=== PATIENT | female | born 1940 | race Caucasian/White ===

== ENCOUNTER 2016-11-01 19:47 | Inpatient (IN) | payer MEDICARE, BC, MEDICAID ==
[~2016-11-01] VITALS: Ht 167.6 cm; Wt 86.2 kg
[~2016-11-01 19:47] MED LIST: ACETAMINOPHEN325 MG PO; ACETAMINOPHEN500 M1 PO; ATIVAN0.5 MG PO; ATROVENT 0.02%2.5 ML UPD; BAYER CHEWABLE81 MG PO; BETAPACE 80 MG80 MG PO; BUMEX2 MG PO; CARDIZEM CD120 MG PO; CARDIZEM120 MG PO; CARDURA2 MG PO; CARDURA4 MG PO; CLARITIN 10 MG10 MG PO; COUMADIN PO; COUMADIN5 MG PO; COUMADIN6 MG PO; COUMADIN7.5 MG PO; CRESTOR10 MG PO; CRESTOR5 MG PO; DIABETA5 MG PO; ELIQUIS2.5 MG PO; FERROUS SULFAT325 MG PO; FISH OIL 1,0001 CA1 PO; GLIPIZIDE10 MG PO; GLUCOPHAGE500 MG PO; GLUCOTROL XL 5 M5 MG PO; HYDRALAZINE HCL50 MG PO; HYZAAR 100-25 T1 TAB PO; ICAPS AREDS1 TAB.SA PO; INDERAL 40 MG T40 MG PO; LASIX20 MG PO; LASIX40 MG PO; LEVAQUIN PREMI750 MG PO; LEVEMIR100 U/M1 SC; LISINOPRIL2.5 MG PO; LYRICA150 MG PO; LYRICA75 MG PO; MICRO-K10 MEQ PO; MILK OF MAGNESI30 ML PO; MULTIPLE VITAMI1 TA1 PO; MYLANTA / MAALO30 ML PO; NORMODYNE / TR300 MG PO; NORVASC10 MG PO; NORVASC5 MG PO; PHENERGAN25 M1 PO; PLAVIX75 MG PO; POTASSIUM CHLO10 ME1 PO; POTASSIUM CHLOR8 ME1 PO; PREVACID SOLUTA30 MG PO; PREVACID15 MG PO; PREVACID30 MG PO; PROCRIT/EP3000 UNITS SC; RYTHMOL225 MG PO; SYNTHROID50 MCG PO; ULTRAM50 MG PO; VITAMIN B-1000 MCG/M IM; WELLBUTRIN SR100 MG PO; WELLBUTRIN SR150 MG PO; XOPENEX 0.0.63 MG/3 UPD; ZITHROMAX 500M500 MG PO; [UNRECOGNIZED DRUG - REMARK]
[2016-11-01 21:00] LABS: BASOPHILS 0.2 % (0-2); EOSINOPHILS 0.8 % (0-7); HEMATOCRIT 34.8 % (36.0-48.0); HEMOGLOBIN 11.5 g/dL (12-16); IMMATURE GRANULOCYTES 0.7 % (0-5); LYMPHOCYTES 22.8 % (15-50); MCH 31.1 pg (26.0-34.0); MCV 94.1 fL (80.0-100.0); MEAN PLATELET VOLUME 11.4 fL (7.4-10.4); NEUTROPHILS 66.5 % (40-80); PLATELET COUNT 192 10x3/uL (130-400); RDW 12.8 % (11.5-14.5); WBC 16.6 10x3/uL (4.8-10.8)
[2016-11-01 21:15] LABS: ALBUMIN 2.8 g/dL (3.4-5.0); ANION GAP 11.3 mmol/L (8-16); BILIRUBIN - TOTAL 0.37 mg/dL (0.2-1.3); CALCIUM 8.4 mg/dL (8.5-10.1); CARBON DIOXIDE 31.5 mmol/L (21.0-32.0); CREATININE - SERUM 2.4 mg/dL (0.6-1.3); POTASSIUM - SERUM 4.8 mmol/L (3.5-5.1); PROTEIN - SERUM 6.7 g/dL (6.4-8.2)
[2016-11-01 23:29] LABS: APPEARANCE CLEAR (CLEAR); BILIRUBIN NEGATIVE (NEGATIVE); COLOR YELLOW (YELLOW); GLUCOSE NEGATIVE (NEGATIVE); KETONE NEGATIVE (NEGATIVE); LEUKOCYTE ESTERASE NEGATIVE (NEGATIVE); NITRITE NEGATIVE (NEGATIVE); PROTEIN NEGATIVE (NEGATIVE); SPECIFIC GRAVITY 1.015 (1.005-1.020); UROBILINOGEN NORMAL (NORMAL)
--- NOTE | 2016-11-02 01:40 | NUR ---
RECIEVED FROM ER, ASSESSMENT, HISTORY AND MED REC COMPLETED, NO ACUTE DISTRESS NOTED, DENIES PAIN OR NEEDS AT THIS TIME, ORIENTED TO ROOM AND CL LIGHT, WILL MONITOR
[2016-11-02 01:42] VITALS: BP 133/56; BMI 30.7
--- NOTE | 2016-11-02 03:40 | NUR ---
RESTING WITH EYES CLOSED, RESP WITH EASE, NO DISTRESS NOTED, SR'S UP, CL IN REACH
[2016-11-02 04:00] VITALS: BP 156/60
[2016-11-02] MEDS ORDERED: TYLENOL W/CODEI1 TAB PO (04:38)
[2016-11-02 05:51] LABS: BASOPHILS 0.2 % (0-2); EOSINOPHILS 0.7 % (0-7); HEMATOCRIT 35.8 % (36.0-48.0); HEMOGLOBIN 11.7 g/dL (12-16); IMMATURE GRANULOCYTES 0.5 % (0-5); LYMPHOCYTES 21.9 % (15-50); MCH 30.8 pg (26.0-34.0); MCHC 32.7 g/dL (31.0-37.0); MCV 94.2 fL (80.0-100.0); MEAN PLATELET VOLUME 11.7 fL (7.4-10.4); MONOCYTES 10.4 % (2-11); NEUTROPHILS 66.3 % (40-80); PLATELET COUNT 210 10x3/uL (130-400); WBC 16.3 10x3/uL (4.8-10.8)
[2016-11-02] MEDS ORDERED: SCOT-TUSSI10 MG/5 ML PO (06:55)
[2016-11-02] MEDS ORDERED: TYLENOL650 MG RC (06:57)
[2016-11-02] MEDS ORDERED: VITAMIN B-1000 MCG/M IM (07:10)
--- NOTE | 2016-11-02 08:10 | NUR ---
PATIENT IS RESTING QUIETLY WITH EYES CLOSED. NO SIGNS OF DISTRESS NOTED. BED IN LOWEST POSITION, CALL LIGHT IN REACH. BED RAILS UP X'S 2. BED ALARM ON.
[2016-11-02 09:45] VITALS: BP 147/83
--- NOTE | 2016-11-02 11:24 | NUR ---
ASSISTED PATIENT TO THE BATHROOM, WITHOUT NASAL CANNULA, MONITORED OXYGEN SATURATION. OXYGEN SATURATION 96%. PATIENT VOIDED, ASSISTED PATIENT BACK TO BED. CHECKED OXYGEN SATURATION AFTER 5 MINUTES OF BEING ON ROOM AIR. 90%. APPLIED OXYGEN VIA NASAL CANNULA AT 2L/MIN. BED ALARM ON.
[2016-11-02 12:45] VITALS: BP 144/72
[2016-11-02 16:55] VITALS: BP 126/71
[2016-11-02 20:00] VITALS: BP 105/52
[2016-11-03] VITALS: BP 105/50
[2016-11-03 04:00] VITALS: BP 105/49
[2016-11-03 06:33] LABS: BASOPHILS 0.1 % (0-2); EOSINOPHILS 0 % (0-7); HEMATOCRIT 33.2 % (36.0-48.0); HEMOGLOBIN 11.1 g/dL (12-16); IMMATURE GRANULOCYTES 1.2 % (0-5); MCH 30.7 pg (26.0-34.0); MCHC 33.4 g/dL (31.0-37.0); MEAN PLATELET VOLUME 11.9 fL (7.4-10.4); MONOCYTES 3.7 % (2-11); PLATELET COUNT 195 10x3/uL (130-400); RBC 3.62 10x6/uL (4.00-5.40); RDW 12.3 % (11.5-14.5); WBC 19.7 10x3/uL (4.8-10.8)
[2016-11-03 06:36] LABS: MCV 91.7 fL (80.0-100.0)
[2016-11-03 06:44] LABS: ALBUMIN 2.6 g/dL (3.4-5.0); ANION GAP 14.7 mmol/L (8-16); BILIRUBIN - TOTAL 0.22 mg/dL (0.2-1.3); CALCIUM 8.7 mg/dL (8.5-10.1); CARBON DIOXIDE 28.3 mmol/L (21.0-32.0); CREATININE - SERUM 2.5 mg/dL (0.6-1.3); PROTEIN - SERUM 6.1 g/dL (6.4-8.2); THYROID STIMULATING HORMONE 0.59 uIU/mL (0.36-3.74)
[2016-11-03 08:31] VITALS: BP 110/64
--- NOTE | 2016-11-03 08:59 | NUR ---
PT ASSESSMENT COMPLETE AWAKE AND ALERT ORIENTED X 3 LUNGS WITH DIMINISHED BASES BILATERALLY HAS O2 AT 2LPM NASAL CANULA ASSISTED TO BATHROOM WITH MIN ASSIST WITH ROLLING WALKER TOTAL BED CHANGE DUE TO INCT EPISODE. DREA LOO
[2016-11-03 11:39] VITALS: BP 116/70
[2016-11-03 13:52] VITALS: Ht 167.6 cm; Wt 86.2 kg
--- NOTE | 2016-11-03 14:34 | NUR ---
PIV RESITED TO RIGHT FORARM 20 GA X 1 STICK GIVEN 1 MG MORPHINE PER ORDER. TOLERATED WELL PT STATES PAIN RELEIF WITH MORPHINE
[2016-11-03 15:25] VITALS: BP 103/47
--- NOTE | 2016-11-03 19:00 | NUR ---
PATIENT SUPINE IN BED WATCHING TV. HOB 30 DEGREES. AAOX4. RR EVEN AND UNLABORED. O2 @ 4L VIA NC. 0 S/S OF DISTRESS. STATES PAIN IS AN 8/10 IN HER BACK AND LEGS. IV TO RIGHT FA S/L WITH NO REDNESS OR SWELLING. TELEMETRY ON. HEEL BOOT TO LLE. B/A ON. SRX2. BED LOW. CALL LIGHT WITHIN REACH.
[2016-11-03 20:26] VITALS: BP 103/35
--- NOTE | 2016-11-03 22:00 | NUR ---
ASSISTED PATIENT TO BATHROOM AND BACK TO BED. COLLECTED URINE SAMPLE. ASSESSMENT COMPLETE. NIGHTTIME MEDS GIVEN. 4 UNITS HUMALOG GIVEN FOR BS OF 171. TYLENOL GIVEN FOR PAIN INSTEAD OF MORPHINE BECAUSE BP LOW. WILL REASSESS.
--- NOTE | 2016-11-03 23:50 | NUR ---
PATIENT VERY NAUSEATED. SPOKE WITH AARON THORNE. MAC GIVEN PER TELEPHONE ORDER.
[2016-11-04] VITALS (7 sets, daily range): BP systolic 76–147; BP diastolic 41–70
--- NOTE | 2016-11-04 04:32 | NUR ---
PATIENT SLEEPING WITH NO DISTRESS NOTED. CALL LIGHT WITHIN REACH.
[2016-11-04 06:07] LABS: HEMOGLOBIN 11.3 g/dL (12-16); MCH 30.4 pg (26.0-34.0); MCHC 33.2 g/dL (31.0-37.0); MCV 91.4 fL (80.0-100.0); MEAN PLATELET VOLUME 11.4 fL (7.4-10.4); PLATELET COUNT 202 10x3/uL (130-400); RBC 3.72 10x6/uL (4.00-5.40); RDW 12.6 % (11.5-14.5); WBC 27.9 10x3/uL (4.8-10.8)
[2016-11-04 06:53] LABS: ALBUMIN 2.5 g/dL (3.4-5.0); ALKALINE PHOSPHATASE 86 U/L (46-116); ALT (SGPT) 19 U/L (10-68); BILIRUBIN - TOTAL 0.26 mg/dL (0.2-1.3); CALC OSMOLALITY 287 mosm/kg (275-300); CALCIUM 8.9 mg/dL (8.5-10.1); CARBON DIOXIDE 29.4 mmol/L (21.0-32.0); CHLORIDE - SERUM 94 mmol/L (98-107); CREATINE KINASE 620 UL (21-215); CREATININE - SERUM 2.9 mg/dL (0.6-1.3); GLUCOSE 122 mg/dL (74-106); POTASSIUM - SERUM 4.5 mmol/L (3.5-5.1); PROTEIN - SERUM 6.4 g/dL (6.4-8.2); SODIUM 132 mmol/L (136-145); UREA NITROGEN 75 mg/dL (7-18); URIC ACID 13.1 mg/dL (2.6-7.2); eGFR NON AFRICAN AMERICAN 17 mL/min (90-120)
[2016-11-04 06:54] LABS: CKMB 2.7 U/L (0.0-3.6)
[2016-11-04 07:00] LABS: LYMPHOCYTES 8 % (15-50); MONOCYTES 3 % (2-11); NEUTROPHILS 82 % (40-80); PLATELET ESTIMATE NORMAL
--- NOTE | 2016-11-04 07:45 | NUR ---
PT ASSESSMENT COMPLETE AWAKE AND ALERT ORIENTED X 3 LUNGS WITH DIMINISHED SOUNDS TO BILATERAL BASES. BSA X 4 QUADS UP WITH ASSIST AMBULATES WITH ROLLING WALKER DRESSING INTACT TO LEFT HEEL BRIDGED AND IN PRESURE RELEIVING BOOTIE.
--- NOTE | 2016-11-04 11:36 | NUR ---
WOUND CARE CONSULT: PT HAS A 4CM X 6.5CM INTACT BLISTER ON BOTTOM OF THE LEFT HEEL. SHE STATED SHE WAS WEARING HER NEW DIABETIC SHOES AND FELT LIKE HER SOCK HAD A FOLD IN IT AT THE HEEL. SHE CHECKED SEVERAL TIMES AND NOTHING WAS FOUND IN THE SHOE AND THE SOCK WAS STRAIGHT. UPON CHECKING HER FEET THAT NIGHT SHE NOTED A BLISTER HAD FORMED. SHE SAID THE CHEN HAS HER SHOES NOW SO SHE HOPES TO HAVE THEM ADJUSTED FOR CORRECT FIT AFTER DISCHARGE FROM HOSPITAL. CURRENTLY THE HEEL IS PROTECTED WITH A NON-STICK GAUZE DRESSING, FOAM HEEL PROTECTOR AND IS BEING BRIDGED ON PILLOW. WOUND CARE WILL CONTINUE MONITORING.
--- NOTE | 2016-11-04 13:44 | NUR ---
UP IN BR. DENIES NEEDS. NO C/O AT THIS TIME.
--- NOTE | 2016-11-04 19:55 | NUR ---
ASSESSMENT COMPLETED, NO DISTRESS NOTED, DSG TO L HEEL CDI, DENIES NEEDS AT THIS TIME, FALL PRECAUTIONS IN PLACE, CL IN REACH, WILL MONITOR
--- NOTE | 2016-11-04 20:59 | NUR ---
ROUTINE MEDS GIVEN PER MAR ALONG WITH PRN MORPHINE FOR C/O BACK/LEG PAIN, LALIT WELL, CL IN REACH, WILL MONITOR
--- NOTE | 2016-11-04 23:17 | NUR ---
SITTING UP IN BED WATCHING TV, DENIES NEEDS, NO DISTRESS NOTED, CL IN REACH
--- NOTE | 2016-11-05 01:34 | NUR ---
MEDS GIVEN PER MAR, ASSISTED TO RESTROOM, LALIT WELL, DENIES NEEDS, NO DISTRESS NOTED, CL IN REACH
--- NOTE | 2016-11-05 02:38 | NUR ---
MORPHINE GIVEN PER MAR FOR C/O PAIN 12/20, LALIT WELL, CL IN REACH
[2016-11-05 04:00] VITALS: BP 94/55
[2016-11-05 05:53] LABS: BASOPHILS 0.1 % (0-2); EOSINOPHILS 0 % (0-7); HEMATOCRIT 32.7 % (36.0-48.0); HEMOGLOBIN 11.1 g/dL (12-16); IMMATURE GRANULOCYTES 2.3 % (0-5); LYMPHOCYTES 7.1 % (15-50); MCH 30.7 pg (26.0-34.0); MCHC 33.9 g/dL (31.0-37.0); MCV 90.3 fL (80.0-100.0); MEAN PLATELET VOLUME 11.8 fL (7.4-10.4); MONOCYTES 7.6 % (2-11); NEUTROPHILS 82.9 % (40-80); PLATELET COUNT 217 10x3/uL (130-400); RBC 3.62 10x6/uL (4.00-5.40); RDW 12.3 % (11.5-14.5); WBC 27.2 10x3/uL (4.8-10.8)
[2016-11-05 06:01] LABS: ALBUMIN 2.3 g/dL (3.4-5.0); ANION GAP 11.2 mmol/L (8-16); BILIRUBIN - TOTAL 0.3 mg/dL (0.2-1.3); CALCIUM 7.9 mg/dL (8.5-10.1); CARBON DIOXIDE 33.9 mmol/L (21.0-32.0); CREATININE - SERUM 2.7 mg/dL (0.6-1.3); POTASSIUM - SERUM 4.1 mmol/L (3.5-5.1); PROTEIN - SERUM 5.8 g/dL (6.4-8.2)
[2016-11-05 07:32] LABS: APPEARANCE CLEAR (CLEAR); BILIRUBIN NEGATIVE (NEGATIVE); COLOR YELLOW (YELLOW); GLUCOSE 50 mg/dL (NEGATIVE); KETONE NEGATIVE (NEGATIVE); LEUKOCYTE ESTERASE NEGATIVE (NEGATIVE); NITRITE NEGATIVE (NEGATIVE); PROTEIN TRACE mg/dL (NEGATIVE); UROBILINOGEN NORMAL (NORMAL)
[2016-11-05 07:33] LABS: CREATININE - URINE 34.1 mg/dL (30-125)
--- NOTE | 2016-11-05 08:06 | CN ---
PATIENT NAME:VINCENZO ALONSO MEDICAL RECORD: [id number] : 40 LOCATION:[id number] ADMIT DATE: 11/02/16 ACCOUNT: [id number] CONSULTING PHYSICIAN: YEYO ELLIOTT MD REFERRING PHYSICIAN: UTE ALEX MD DATE OF CONSULTATION: 11/04/2016 Cardiology Consultation DIAGNOSES: 1. Atrial fibrillation with rapid ventricular response. 2. Chronic atrial fibrillation. 3. Pneumonia. 4. Renal insufficiency. 5. Chronic obstructive pulmonary disease. HISTORY OF PRESENT ILLNESS: Mrs. Alonso presents with respiratory distress, possible pneumonia. She has chronic atrial fibrillation, for which she was on sotalol 40 mg b.i.d., her heart rate is now greater than 100 continuously. She has been getting increasing breathing treatments as well. She has not had any cardiac symptomatology since her chest pain or chest discomfort. PHYSICAL EXAMINATION: GENERAL APPEARANCE: Well-nourished, well-developed, appears stated age. Level of distress, comfortable. PSYCHIATRIC: Mental status, alert, normal affect. Orientation, oriented to time, place and person. EYES: Lids and conjunctiva, noninjected. No discharge, no pallor. ENT: Lips, teeth, gums, normal dentition. Oropharynx, no cyanosis, no pallor. NECK: Carotid arteries, bilateral normal upstroke, no bruits, no thrills. JUGULAR VEINS: No jugular venous pressure or distention. CERVICAL LYMPH NODES: Nontender, nonenlarged. THYROID: Not enlarged. Nontender. No nodules. LUNGS: Respiratory effort, unlabored. CHEST: Normal curvature. No thoracic deformity. No chest wall tenderness. Percussion, resonant. Auscultation, clear. No wheezes, no rales, no rhonchi. CARDIOVASCULAR: Precordial exam, nondisplaced. No heaves or pericardial thrills. The heart is irregularly, irregular, tachycardic with atrial fibrillation. Heart sounds, normal S1, normal S2. No S3, no gallop, no rub. Systolic murmur, not heard. Diastolic murmur, not heard. EXTREMITIES: No cyanosis, no edema. Peripheral pulses, full and equal in all extremities, except as noted. No bruits appreciated. ABDOMEN: Soft, nondistended. Normal aorta. No bruit. Nontender. No masses. Liver, nontender, no hepatomegaly. Spleen, nontender, no splenomegaly. MUSCULOSKELETAL: No joint tenderness. No joint swelling. No erythema. NEUROLOGICAL: Normal gait, normal strength, normal tone. SKIN: Warm and dry. REVIEW OF SYSTEMS: The patient reports easy bruising but reports no swollen glands. The patient reports no fever, no night sweats, no significant weight gain, no significant weight loss. No significant exercise tolerance. The patient reports no dry eyes, no irritation, no vision change. Patient reports no difficulty hearing and no ear pain. Patient reports no frequent nose bleeds or nose and sinus problems. Patient reports on arm pain on exertion. No shortness of breath while lying down. No history of heart murmur. Patient CONSULT REPORT [id number] VINCENZO ALONSO reports no cough, no wheezing or coughing up blood. Patient reports no abdominal pain, no vomiting. Normal appetite. No diarrhea and not vomiting blood. No nausea and no constipation. Patient reports no incontinence. No difficulty urinating. No hematuria. No increased frequency. Patient reports no muscle aches. No weakness, no arthralgias, no back pain. No swelling of the extremities. Patient reports no abnormal mole, no jaundice, no rashes. Reports no loss of consciousness. No weakness and no numbness. No seizures, dizziness, or headaches. The patient reports no depression, no sleep disturbance, feeling safe in a relationship and no alcohol abuse. Patient reports on fatigue. Reports no runny nose or sinus pressure. No itching, no hives, and no frequent sneezing. OVERALL IMPRESSION: Atrial fibrillation. At this time, simple treatment will be to increase her sotalol from 40 mg b.i.d. to 80 mg b.i.d. She is on anticoagulation in the form of Eliquis for that, continue that for stroke prophylaxis, no other cardiac workup or treatment is necessary. TRANSINT:[id number] Voice Confirmation ID: [id number] DOCUMENT ID: [id number] YEYO ELLIOTT MD at 0806 CC: [id number] DICTATION DATE: 11/04/161211 SPEAKER MOUNTER: 11/04/16 1829 [facility] [place] [address]
[2016-11-05 08:49] VITALS: BP 98/53
--- NOTE | 2016-11-05 10:12 | NUR ---
Patient Name: VINCENZO KOEHLER Admission Status: ER Accout number: [id number] Admission Date: 11-02-2016 : 1940 Admission Diagnosis: Attending: MARLENI Current LOS: 3 Anticipated DC Date: 11-07-2016 Planned Disposition: Nursing Facility [facility] Primary Insurance: MEDICARE A & B Discharge Planning Comments: CM MET WITH PATIENT REGARDING D/C NEEDS AND PLANS. PATIENT STATED SHE LIVES AT [facility] AND WILL RETURN THERE AT DISCHARGE. PATIENT USES A WALKER, OXYGEN, AND NEBULIZER AT FACILITY. PATIENTS PCP IS DR. CARRION AND PHARMACY IS IN HOUSE. CM WILL CONTINUE TO FOLLOW PATIENT WITH D/C NEEDS AND PLANS. PCP DR. CARRION IN HOUSE AT [facility] JACK (SON) [phone] Liquid Center Assembler: Yanira Ramsey Is the patient Alert and Oriented? Yes 0 * How many steps to enter\exit or inside your home? 0 0 * PCP DR. CARRION 0 * Pharmacy IN HOUSE [facility] 0 * Preadmission Environment [facility] 0 * Facility Name [facility] 0 * ADLs Partial Dependent 0 * Partial ADLs (Assistance needed) Ambulation Bathing Dressing Medication Management 0 * Equipment Nebulizer Oxygen Wheelchair 0 * Other Equipment [facility] HAS ALL EQUIPMENT NEEDED 0 * List name and contact numbers for known caregivers / representatives who currently or will assist patient after discharge: JACK (SON) [phone] * Community resources currently utilized None 0 * Additional services required to return to the preadmission environment? Yes 0 * Can the patient safely return to the preadmission environment? Yes 0 * Has this patient been hospitalized within the prior 30 days at any hospital? No 0 Grand Total: 0
[2016-11-05 11:37] VITALS: BP 118/72
--- NOTE | 2016-11-05 12:54 | NUR ---
NUTRITION MONITORING & EVAL CHART REVIEWED. PT EATING LUNCH. GUEST AT BEDSIDE. WILL CONTINUE TO PROVIDE ADA DIET, HONOR FOOD PREFERENCES ALLOWED BY DIET RESTRICTIONS. RD FOLLOWING
[2016-11-05 15:27] VITALS: BP 115/55
--- NOTE | 2016-11-05 19:20 | NUR ---
LYING IN BED RESTING WITH EYES CLOSED, EASILY AROUSED, ASSESSMENT COMPLETED, NO DISTRESS NOTED, DENIES NEEDS, SAFETY PRECAUTIONS IN PLACE, CL IN REACH, WILL MONITOR
[2016-11-05 20:00] VITALS: BP 108/56
--- NOTE | 2016-11-05 21:52 | NUR ---
MEDS GIVEN PER MAR, LALIT WELL, DIABETIC SNACK PROVIDED, DENIES NEEDS AT THIS TIME, CL IN REACH
[2016-11-06] VITALS: BP 114/58
--- NOTE | 2016-11-06 01:28 | NUR ---
MEDS GIVEN PER MAR, LALIT WELL, DENIES NEEDS, CL IN REACH
--- NOTE | 2016-11-06 03:15 | NUR ---
PT SITTING UP ON EDGE OF BED, DENIES NEEDS, NO DISTRESS NOTED, CL IN REACH
--- NOTE | 2016-11-06 06:16 | NUR ---
MEDS GIVEN PER MAR, LALIT WELL, DENIES NEEDS, LAB IN ROOM, SR'S UP, CL IN REACH
[2016-11-06 06:29] LABS: BASOPHILS 0.1 % (0-2); EOSINOPHILS 0 % (0-7); HEMATOCRIT 34.4 % (36.0-48.0); HEMOGLOBIN 11.6 g/dL (12-16); LYMPHOCYTES 8.3 % (15-50); MCH 30.4 pg (26.0-34.0); MCHC 33.7 g/dL (31.0-37.0); MCV 90.1 fL (80.0-100.0); MONOCYTES 6.6 % (2-11); PLATELET COUNT 205 10x3/uL (130-400); RBC 3.82 10x6/uL (4.00-5.40); RDW 12.3 % (11.5-14.5); WBC 27.2 10x3/uL (4.8-10.8)
[2016-11-06 06:56] LABS: ALBUMIN 2.4 g/dL (3.4-5.0); BILIRUBIN - TOTAL 0.28 mg/dL (0.2-1.3); CARBON DIOXIDE 38.9 mmol/L (21.0-32.0); CREATININE - SERUM 2.4 mg/dL (0.6-1.3); MAGNESIUM - SERUM 2.1 mg/dL (1.8-2.4); PHOSPHOROUS 4.3 mg/dL (2.5-4.9); POTASSIUM - SERUM 3.9 mmol/L (3.5-5.1); PROTEIN - SERUM 5.5 g/dL (6.4-8.2)
[2016-11-06 08:21] VITALS: BP 124/60
[2016-11-06 12:26] VITALS: BP 114/67
[2016-11-06 16:22] VITALS: BP 136/73
[2016-11-06 20:00] VITALS: BP 141/66
--- NOTE | 2016-11-06 20:00 | NUR ---
PT RECEIVED RESTING IN BED WITH EYES CLOSED. PT ABLE TO VOICE NEEDS, NO COMPLAINTS OR NEEDS VOICED AT THIS TIME. CALL LIGHT AND H2O IN PT REACH. BED IN LOW POSITION. SIDE RAILS UP X2.
--- NOTE | 2016-11-06 22:00 | NUR ---
JAMIE LEWIS PROVIDED TO PT HS SNACK D/T RECEIVING INSULIN.
[2016-11-07] VITALS: BP 143/64
--- NOTE | 2016-11-07 00:45 | NUR ---
PT C/O IV IN RIGHT FA HURTING. NO REDNESS OR SWELLING...OFFERED TO RE-SITE AND PT DECLINED. WILL MONITOR CLOSELY.
[2016-11-07 04:00] VITALS: BP 150/87
--- NOTE | 2016-11-07 04:06 | NUR ---
RN NOTE: PT RESTING QUIETLY IN SUPINE POSITION. IV IN RIGHT FA PATENT WITH 1/2 NS INFUSING AT 75 ML / HR. FORM SETTER HELPER W/ DILAUDID IN USE FOR PAIN CONTROL. WILL CONTINUE TO MONITOR FOR NEEDS.
[2016-11-07 05:56] LABS: BASOPHILS 0.3 % (0-2); EOSINOPHILS 0.5 % (0-7); HEMATOCRIT 36.9 % (36.0-48.0); HEMOGLOBIN 12.2 g/dL (12-16); MCH 30.3 pg (26.0-34.0); MCHC 33.1 g/dL (31.0-37.0); MCV 91.8 fL (80.0-100.0); MEAN PLATELET VOLUME 11.4 fL (7.4-10.4); MONOCYTES 9.4 % (2-11); NEUTROPHILS 68.8 % (40-80); PLATELET COUNT 256 10x3/uL (130-400); RBC 4.02 10x6/uL (4.00-5.40); RDW 12.7 % (11.5-14.5); WBC 31.7 10x3/uL (4.8-10.8)
[2016-11-07 06:53] LABS: ALBUMIN 2.5 g/dL (3.4-5.0); ANION GAP 5.4 mmol/L (8-16); BILIRUBIN - TOTAL 0.24 mg/dL (0.2-1.3); CALCIUM 8.3 mg/dL (8.5-10.1); CARBON DIOXIDE 38.8 mmol/L (21.0-32.0); CREATININE - SERUM 2.2 mg/dL (0.6-1.3); PHOSPHOROUS 3.7 mg/dL (2.5-4.9); PROTEIN - SERUM 5.6 g/dL (6.4-8.2)
[2016-11-07 06:54] LABS: POTASSIUM - SERUM 3.2 mmol/L (3.5-5.1)
--- NOTE | 2016-11-07 07:37 | NUR ---
PT'S FASTING BLOOD SUGAR 44. NO S/S OF HYPOGLYCEMIA OBSERVED, PT DENIES SYMPTOMS OF HYPOGLYCEMIA. ORANGE JUICE, JAMIE CRACKERS, AND PEANUTBUTTER PROVIDED TO PT. PT ATE FOOD AND DRANK JUICE. BLOOD SUGAR WENT UP TO 69. PT STATES, "I FEEL FINE." EDUCATED PT IMPORTANCE OF EATING BREAKFAST DUE TO LOW BLOOD SUGAR LEVEL, PT VERBALIZED UNDERSTANDING, STATING, "I WILL EAT BREAKFAST."
--- NOTE | 2016-11-07 07:42 | NUR ---
NOTIFIED ONCOMING NRUSE OF PT BLOOD SUGAR LEVELS, SNACKS PROVIDED, AND PT EDUCATED ON IMPORTANCE OF EATING BREAKFAST.
--- NOTE | 2016-11-07 08:12 | NUR ---
RESTING, BS 69 GLUCOSE GEL GIVEN BS 206 NOW, BREATHING EVEN AND UNLABORED, CALL LIGHT IN REACH, BED LOWEST POSITION, WILL CONTINUE TO MONIOTOR
[2016-11-07 10:09] VITALS: BP 112/62
[2016-11-07 11:47] VITALS: BP 139/89
--- NOTE | 2016-11-07 14:15 | NUR ---
LYING IN BED,WITHOUT DISTRESS.CALL LIGHT IN REACH
[2016-11-07 16:38] VITALS: BP 140/82
[2016-11-07 19:00] VITALS: BP 126/74
--- NOTE | 2016-11-07 19:30 | NUR ---
PT RECEIVED SITTING UP IN BED WATCHING TELEVISION. ASSESSMENT COMPLETED PER FLOWSHEET. PT DENIES NEEDS AT THIS TIME. CALL LIGHT AND H2O IN PT REACH. BED IN LOW POSITION. SIDE RAILS UP X2.
--- NOTE | 2016-11-07 22:00 | NUR ---
PT REFUSED SLIDING SCALE INSULIN D/T NOT WANTING TO EAT A SNACK. PT AGREED TO LEVEMIR AND DRANK ORANGE JUICE.
[2016-11-08] VITALS: BP 132/76
--- NOTE | 2016-11-08 01:28 | NUR ---
PT REQUESTS SANDWICH. SANDWICH PROVIDED TO PT, PT ATE 100% OF SANDWICH.
--- NOTE | 2016-11-08 03:41 | NUR ---
LYING IN BED WITH EYES CLOSED. RESP. EVEN AND UNLABORED. CALL LIGHT IN REACH.
[2016-11-08 04:00] VITALS: BP 148/78
[2016-11-08 06:58] LABS: BASOPHILS 0.3 % (0-2); EOSINOPHILS 0.2 % (0-7); HEMATOCRIT 34.6 % (36.0-48.0); HEMOGLOBIN 11.4 g/dL (12-16); IMMATURE GRANULOCYTES 6.7 % (0-5); LYMPHOCYTES 15.8 % (15-50); MCH 30.6 pg (26.0-34.0); MCHC 32.9 g/dL (31.0-37.0); MCV 92.8 fL (80.0-100.0); MEAN PLATELET VOLUME 11.6 fL (7.4-10.4); MONOCYTES 5.7 % (2-11); NEUTROPHILS 71.3 % (40-80); PLATELET COUNT 225 10x3/uL (130-400); RBC 3.73 10x6/uL (4.00-5.40); RDW 12.9 % (11.5-14.5); WBC 24.6 10x3/uL (4.8-10.8)
[2016-11-08 07:23] LABS: ALBUMIN 2.4 g/dL (3.4-5.0); BILIRUBIN - TOTAL 0.27 mg/dL (0.2-1.3); CALCIUM 8.2 mg/dL (8.5-10.1); CARBON DIOXIDE 37.4 mmol/L (21.0-32.0); CREATININE - SERUM 2.1 mg/dL (0.6-1.3); PHOSPHOROUS 2.8 mg/dL (2.5-4.9); PROTEIN - SERUM 5.7 g/dL (6.4-8.2)
[2016-11-08 07:30] LABS: ANION GAP 4.6 mmol/L (8-16)
--- NOTE | 2016-11-08 07:45 | NUR ---
SLEEPING, NO DISTRESS NOTED, BREATHING EVEN AND UNLABORED, CALL LIGHT IN REACH, BED LOWEST POSITION, WILL CONTINUE TO MONITOR
[2016-11-08 09:00] VITALS: BP 149/78
[2016-11-08 16:17] VITALS: BP 161/70
--- NOTE | 2016-11-08 16:21 | NUR ---
LYING IN BED,WITHOUT NEEDS.PT WITHOUT DISTRESS.CALL LIGHT IN REACH
--- NOTE | 2016-11-08 17:58 | NUR ---
RESTING QUIETLY, DENIES NEEDS
[2016-11-08 20:00] VITALS: BP 164/77
--- NOTE | 2016-11-08 22:14 | NUR ---
Resting in bed, alert and oriented, bed in lowest postion and locked, call light and water in reach, PRN Tylenol #3 given for pain at 2119, [facility], will monitor.
[2016-11-09] VITALS: BP 162/66
--- NOTE | 2016-11-09 01:22 | NUR ---
At 01:15 Dressing change to heel of left foot, scant amout of yellow drainage.
[2016-11-09 04:00] VITALS: BP 141/60
[2016-11-09 05:42] LABS: BASOPHILS 0.3 % (0-2); EOSINOPHILS 0.7 % (0-7); HEMATOCRIT 35.2 % (36.0-48.0); HEMOGLOBIN 11.4 g/dL (12-16); IMMATURE GRANULOCYTES 6.8 % (0-5); LYMPHOCYTES 19.1 % (15-50); MCH 30.2 pg (26.0-34.0); MCHC 32.4 g/dL (31.0-37.0); MCV 93.1 fL (80.0-100.0); MEAN PLATELET VOLUME 10.6 fL (7.4-10.4); MONOCYTES 7.2 % (2-11); NEUTROPHILS 65.9 % (40-80); PLATELET COUNT 211 10x3/uL (130-400); RBC 3.78 10x6/uL (4.00-5.40); RDW 12.9 % (11.5-14.5); WBC 22.8 10x3/uL (4.8-10.8)
[2016-11-09 05:51] LABS: ALBUMIN 2.4 g/dL (3.4-5.0); ANION GAP 6.9 mmol/L (8-16); BILIRUBIN - TOTAL 0.35 mg/dL (0.2-1.3); CALCIUM 8.4 mg/dL (8.5-10.1); CREATININE - SERUM 1.8 mg/dL (0.6-1.3); PHOSPHOROUS 3.5 mg/dL (2.5-4.9); POTASSIUM - SERUM 3.9 mmol/L (3.5-5.1); PROTEIN - SERUM 5.7 g/dL (6.4-8.2)
[2016-11-09 09:17] VITALS: BP 172/76
--- NOTE | 2016-11-09 10:25 | NUR ---
SCHEDULED MEDICATIONS ADMINISTERED AT THIS TIME. ASSESSMENT PERFORMED PER FLOWSHEET. PT UP AD MIKE AND SELF POSITIONS FOR COMFORT. OXYGEN ON 2L VIA NC. DENIES PAIN AT THIS TIME. REMAINS IN ENTERIC ISOLATION. CALL LIGHT IN REACH, WILL CONTINUE WITH PLAN OF CARE.
--- NOTE | 2016-11-09 11:43 | NUR ---
BLOOD SUGAR 196 AND TREATED WITH 8 UNITS PER SLIDING SCALE.
[2016-11-09 11:53] VITALS: BP 139/61
--- NOTE | 2016-11-09 13:29 | NUR ---
SCHEDULED MEDICATINS ADMINISTERED AT THIS TIME. PT IN BED WITH RESPIRATIONS EVEN AND NON LABORED. DENIES NEEDS AT THIS TIME. CALL LIGHT IN REACH, WILL CONTINUE WITH PLAN OF CARE.
[2016-11-09 15:33] VITALS: BP 147/51
--- NOTE | 2016-11-09 16:26 | NUR ---
BLOOD SUGAR 250 AND TREATED WITH 12 UNITS PER SLIDING SCALE. DENIES NEEDS AT THIS TIME. CALL LIGHT IN REACH, WILL CONTINUE WITH PLAN OF CARE. DAUGHTER AT BEDSIDE.
[2016-11-09 20:00] VITALS: BP 154/69
--- NOTE | 2016-11-09 20:00 | NUR ---
ASSESSMENT PER FLOWSHEET. C/O PAIN TO BOTH FEET RATES PAIN NUMBER #5-6. TYLENOL #3 TAB ONE PO GIVEN FOR PAIN CONTROL. SITTING ON SIDE OF BED.PT IN ENTERIC ISOLATION.
--- NOTE | 2016-11-09 20:45 | NUR ---
JAMIE CRACKERS AND MILK GIVEN PO FOR ADA SNACK.
--- NOTE | 2016-11-09 21:30 | NUR ---
MEDS GIVEN PER SEP. EXGV=[id number]. 24 UNITS HUMALOG INSULIN GIVEN SUBC PER S/S.
[2016-11-10] VITALS: BP 129/54
--- NOTE | 2016-11-10 | NUR ---
EYES CLOSED RESPIRATIONS WITH EASE AND UNLABORED.
--- NOTE | 2016-11-10 02:10 | NUR ---
EYES CLOSED RESPIRATIONS WITH EASE AND UNLABORED. SR UP X2 CALL LIGHT WITHIN REACH.
[2016-11-10 04:00] VITALS: BP 144/70
[2016-11-10 05:53] LABS: BASOPHILS 0.2 % (0-2); EOSINOPHILS 0.2 % (0-7); HEMATOCRIT 34.5 % (36.0-48.0); HEMOGLOBIN 11.2 g/dL (12-16); IMMATURE GRANULOCYTES 7.9 % (0-5); LYMPHOCYTES 16.7 % (15-50); MCH 30.4 pg (26.0-34.0); MCHC 32.5 g/dL (31.0-37.0); MCV 93.8 fL (80.0-100.0); MEAN PLATELET VOLUME 11.1 fL (7.4-10.4); MONOCYTES 7.5 % (2-11); NEUTROPHILS 67.5 % (40-80); PLATELET COUNT 237 10x3/uL (130-400); RBC 3.68 10x6/uL (4.00-5.40); RDW 12.8 % (11.5-14.5); WBC 20.9 10x3/uL (4.8-10.8)
[2016-11-10 06:07] LABS: ALBUMIN 2.3 g/dL (3.4-5.0); ANION GAP 7.8 mmol/L (8-16); BILIRUBIN - TOTAL 0.24 mg/dL (0.2-1.3); CALCIUM 8.2 mg/dL (8.5-10.1); CARBON DIOXIDE 32.4 mmol/L (21.0-32.0); CREATININE - SERUM 1.7 mg/dL (0.6-1.3); PHOSPHOROUS 3.9 mg/dL (2.5-4.9); POTASSIUM - SERUM 4.2 mmol/L (3.5-5.1); PROTEIN - SERUM 5.5 g/dL (6.4-8.2)
[2016-11-10 08:22] VITALS: BP 145/70
--- NOTE | 2016-11-10 09:29 | NUR ---
SCHEDULED MEDICATIONS ADMINISTERED AT THIS TIME. TAKEN WITHOUT DIFFICULTY. PT READY TO D/C HOME TODAY. REMAINS IN ENTERIC ISOLATION.
[2016-11-10] MEDS ORDERED: BETAPACE 80 MG80 MG PO (10:22)
[2016-11-10] MEDS ORDERED: SINGULAIR10 MG PO (10:22)
[2016-11-10] MEDS ORDERED: ULORIC40 MG PO (10:23)
[2016-11-10] MEDS ORDERED: VANCOMYCIN250 MG/51 PO (10:24)
--- NOTE | 2016-11-10 10:45 | NUR ---
IV TO RIGHT FOREARM D/C WITH CATH TIP INTACT. PERSONAL BELONGINGS PACKED AND PT ASSISTED WITH DRESSING.
--- NOTE | 2016-11-10 11:10 | NUR ---
CM MET WITH PATIENT REGARDING D/C TODAY AND PATIENT STATED HER CHILDREN ARE AT WORK AND SHE WILL NEED THE VAN FROM [facility] TO PICK HER UP. CM CALLED PERLA AT [facility] AND SHE STATED THE FACILITY VAN WAS IN [place] ALREADY AND WOULD PICK PATIENT UP SOON WE COULD GET HER READY. NURSING WAS NOTIFIED AND THEY ARE CALLING REPORT AND VAN IS ON THE WAY TO LIBRARY CONSULTANT PATIENT. D/C IMM SIGNED
--- NOTE | 2016-11-10 11:10 | NUR ---
REPORT CALLED TO WONG WALKER AT [facility] AT [phone].
--- NOTE | 2016-11-10 11:23 | NUR ---
CM REASSESSMENT NOTE: PATIENT IS DISCHARGING TODAY TO [facility] BY FACILITY VAN TO A SKILLED BED.
--- NOTE | 2016-11-10 12:20 | NUR ---
DISCHARGED TO [facility] AT THIS TIME VIA TRANSPORTATION FROM FACILITY.
[2016-11-11 03:09] LABS: OVA + PARASITE EXAM Final report (())
== END 2016-11-10 12:20 | DRG 683 ==
LOC: D.ER 19:47 → D.MS 11-02 00:34
PROVIDERS: Family Medicine; Internal Medicine Nephrology; ADMIT Family Medicine
DX: N17.9 Acute kidney failure, unspecified (principal); A04.7 Enterocolitis due to Clostridium difficile; I50.32 Chronic diastolic (congestive) heart failure; I48.2 Chronic atrial fibrillation; Z79.01 Long term (current) use of anticoagulants; J44.9 Chronic obstructive pulmonary disease, unspecified; R55 Syncope and collapse; E11.65 Type 2 diabetes mellitus with hyperglycemia; R47.02 Dysphasia; I65.29 Occlusion and stenosis of unspecified carotid artery; E03.9 Hypothyroidism, unspecified; E79.0 Hyperuricemia without signs of inflammatory arthritis and tophaceous disease; Z79.4 Long term (current) use of insulin; S90.822A Blister (nonthermal), left foot, initial encounter; I70.209 Unspecified atherosclerosis of native arteries of extremities, unspecified extremity; Z86.73 Personal history of transient ischemic attack (TIA), and cerebral infarction without residual deficits; Z87.891 Personal history of nicotine dependence

== ENCOUNTER 2016-12-03 22:04 | Inpatient (IN) | payer MEDICARE, BC, MEDICAID ==
[~2016-12-03] VITALS: Ht 167.6 cm; Wt 116.1 kg
[~2016-12-03 22:04] MED LIST changes: +SCOT-TUSSI10 MG/5 ML PO; +SINGULAIR10 MG PO; +TYLENOL W/CODEI1 TAB PO; +TYLENOL650 MG RC; +ULORIC40 MG PO; +VANCOMYCIN250 MG/51 PO
[2016-12-03 23:34] LABS: BASOPHILS 0.3 % (0-2); EOSINOPHILS 0.4 % (0-7); HEMATOCRIT 28.4 % (36.0-48.0); HEMOGLOBIN 9.2 g/dL (12-16); IMMATURE GRANULOCYTES 0.5 % (0-5); LYMPHOCYTES 21.9 % (15-50); MCH 29.9 pg (26.0-34.0); MCHC 32.4 g/dL (31.0-37.0); MCV 92.2 fL (80.0-100.0); MEAN PLATELET VOLUME 10.5 fL (7.4-10.4); MONOCYTES 12.1 % (2-11); NEUTROPHILS 64.8 % (40-80); RBC 3.08 10x6/uL (4.00-5.40); RDW 13.7 % (11.5-14.5); WBC 16.7 10x3/uL (4.8-10.8)
[2016-12-03 23:42] LABS: PLATELET COUNT 302 10x3/uL (130-400)
[2016-12-04] VITALS: BP 123/55; BP 132/65; BP 138/55
[2016-12-04 00:02] LABS: ALBUMIN 2.7 g/dL (3.4-5.0); ALKALINE PHOSPHATASE 91 U/L (46-116); ALT (SGPT) 18 U/L (10-68); BILIRUBIN - TOTAL 0.33 mg/dL (0.2-1.3); CALC OSMOLALITY 277 mosm/kg (275-300); CALCIUM 8.5 mg/dL (8.5-10.1); CARBON DIOXIDE 29.7 mmol/L (21.0-32.0); CHLORIDE - SERUM 97 mmol/L (98-107); CREATININE - SERUM 1.8 mg/dL (0.6-1.3); GLUCOSE 189 mg/dL (74-106); PROTEIN - SERUM 6.8 g/dL (6.4-8.2); SODIUM 133 mmol/L (136-145); UREA NITROGEN 32 mg/dL (7-18); eGFR NON AFRICAN AMERICAN 29 mL/min (90-120)
[2016-12-04 00:11] LABS: CREATINE KINASE 58 UL (21-215); MAGNESIUM - SERUM 1.8 mg/dL (1.8-2.4); PRO BNP 7212 pg/mL (0-450)
[2016-12-04 00:12] LABS: TROPONIN-I < 0.017 ng/mL (0.000-0.060)
--- NOTE | 2016-12-04 01:32 | NUR ---
RECEIVED FROM ER, REPORT CALLED FROM NIEL ULLOA, PT IS ALERT AND ORINT. UP ABLIB, BED IS LOW, SRX2, CALL LIGHT IN REACH, WILL CONTINUE TO MONITOR
[2016-12-04 04:00] VITALS: BP 126/62; BP 135/72; BP 148/86
--- NOTE | 2016-12-04 07:35 | NUR ---
AM ROUNDING- RECEIVED REPORT FROM COMPLIANCE REVIEW SPECIALIST NURSE MICHAEL. PT IS CURRENTLY LAYING IN BED ON BACK WITH EYES CLOSED RESTING. ON 02 AT 2L VIA NC. NO MONITOR. IV SEEN TO LEFT AC THAT IS CURRENTLY SALINE LOCKED. NO NEED AT CURRENT TIME. WILL CONTINUE TO MONITOR AND CONTINUE WITH PLAN OF CARE.
[2016-12-04 08:17] VITALS: BP 144/67
[2016-12-04 12:00] VITALS: BP 149/74
[2016-12-04 13:15] VITALS: Ht 167.6 cm; Wt 116.1 kg
[2016-12-04] MEDS ORDERED: LEVAQUIN500 MG PO (13:30)
[2016-12-04] MEDS ORDERED: PREDNISONE10 MG PO (13:31)
[2016-12-04] MEDS ORDERED: PROBIOTIC1 EAC1 PO (15:04)
--- NOTE | 2016-12-04 15:10 | NUR ---
Patient Name: VINCENZO KOEHLER Admission Status: ER Accout number: [id number] Admission Date: 12-03-2016 : 1940 Admission Diagnosis: Attending: BETTY Current LOS: 1 Anticipated DC Date: 12-04-2016 Planned Disposition: Nursing Facility [facility] Primary Insurance: MEDICARE A & B PLANNED EXTERNAL PROVIDER: [facility], [facility] MEDICAID BED Discharge Planning Comments: * Is the patient Alert and Oriented? Yes 0 * How many steps to enter\exit or inside your home? NONE 0 * PCP DR. CARRION 0 * Pharmacy [facility] 0 * Preadmission Environment [facility] 0 * Facility Name [facility] 0 * ADLs Partial Dependent 0 * Partial ADLs (Assistance needed) Medication Management 0 * Equipment Nebulizer Oxygen Rolling Walker 0 * Other Equipment ALL MEDICAL EQUIPMENT PROVIDED BY LONG TERM FACILITY 0 * List name and contact numbers for known caregivers / representatives who currently or will assist patient after discharge: JACK KOEHLER, SON, 0 * Community resources currently utilized None 0 * Please name any agencies selected above. NONE 0 * Additional services required to return to the preadmission environment? No 0 * Can the patient safely return to the preadmission environment? Yes 0 * Has this patient been hospitalized within the prior 30 days at any hospital? Yes 0 CM MET WITH PT IN ROOM TO DISCUSS DISCHARGE PLANNING AND NEEDS. PT REPORTS LIVING AT FOR THE PAST TWO YEARS AT [facility] AND IS NOW WAITING FOR AN ASSISTED LIVING BED AT [facility] ONCE A SPOT BECOMES AVAILABLE. PT FEELS SAFE, HAS ALL OF HER NEEDS MET THERE AND WILL RETURN THERE AT DISCHARGE TODAY. PT HAS CALLED HER SON TO PICK HER UP SHORTLY FOR TRANSPORT BACK TO THE LONG TERM. PT HAS NIGHTTIME OXYGEN, NEBULIZER AND WALKER WITH WHEELS AT THE LONG TERM. PT DENIES DISCHARGE NEEDS, REPORTS HER SON WILL PICK HER UP FOR DISCHARGE HOME. CM CALLED [facility], , SPOKE TO BILLY WHO REPORTED THEY WILL ACCEPT PT BACK TODAY. CM FAXED DISCHARGE INFORMATION TO [facility] AT [phone]. NURSE REPORT TO BE CALLED TO TRICE AT [facility], . PT'S SON TO TRANSPORT PT BACK TO LONG TERM TODAY. Coroner Forensic Technician: Tyrone Guzman
[2016-12-04 15:59] VITALS: BP 165/73
--- NOTE | 2016-12-04 16:27 | NUR ---
D/C INSTRUCTIONS EXPLAINED TO PT. D/C PAPERWORK SIGNED BY PT AND PLACED IN CHART. IV TO LEFT AC REMOVED WITH CATH TIP INTACT. COVERED SITE WITH 2X2 GAUZE PADS AND SECURED WITH TAPE. ARABELLADEB IS TAKING PT DOWN IN WHEELCHAIR NOW TO SON WHO IS TAKING PT BACK TO [facility]ISON ([facility]).
--- NOTE | 2016-12-04 16:33 | NUR ---
CALLED REPORT TO TRICE ARMANDO LPN AND GAVE REPORT. INFORMED HIM THAT PTS SON IS TAKING HIM TO [facility].
== END 2016-12-04 16:35 | DRG 191 ==
LOC: D.ER 22:04 → D.M2 23:42
PROVIDERS: Nurse Practitioner Acute Care; ADMIT Family Medicine
DX: J44.0 Chronic obstructive pulmonary disease with (acute) lower respiratory infection (principal); I13.0 Hypertensive heart and chronic kidney disease with heart failure and stage 1 through stage 4 chronic kidney disease, or unspecified chronic kidney disease; J20.9 Acute bronchitis, unspecified; J44.1 Chronic obstructive pulmonary disease with (acute) exacerbation; Z86.73 Personal history of transient ischemic attack (TIA), and cerebral infarction without residual deficits; E11.65 Type 2 diabetes mellitus with hyperglycemia; Z79.4 Long term (current) use of insulin; E11.22 Type 2 diabetes mellitus with diabetic chronic kidney disease; N18.9 Chronic kidney disease, unspecified; I50.9 Heart failure, unspecified; I48.91 Unspecified atrial fibrillation; I73.9 Peripheral vascular disease, unspecified; Z87.891 Personal history of nicotine dependence

== ENCOUNTER 2016-12-31 03:56 | Inpatient (IN) | payer MEDICARE, BC, MEDICAID ==
[~2016-12-31] VITALS: Ht 162.6 cm; Wt 113.1 kg
[~2016-12-31 03:56] MED LIST changes: +LEVAQUIN500 MG PO; +PREDNISONE10 MG PO; +PROBIOTIC1 EAC1 PO
[2016-12-31 05:01] LABS: BASOPHILS 0.3 % (0-2); EOSINOPHILS 2.3 % (0-7); HEMATOCRIT 27.1 % (36.0-48.0); HEMOGLOBIN 8.9 g/dL (12-16); IMMATURE GRANULOCYTES 0.4 % (0-5); LYMPHOCYTES 16.2 % (15-50); MCH 29.7 pg (26.0-34.0); MCHC 32.8 g/dL (31.0-37.0); MCV 90.3 fL (80.0-100.0); MEAN PLATELET VOLUME 10.4 fL (7.4-10.4); MONOCYTES 6.7 % (2-11); NEUTROPHILS 74.1 % (40-80); PLATELET COUNT 277 10x3/uL (130-400); RDW 14.6 % (11.5-14.5); WBC 9.9 10x3/uL (4.8-10.8)
[2016-12-31 05:22] LABS: ALBUMIN 2.8 g/dL (3.4-5.0); ANION GAP 11.6 mmol/L (8-16); BILIRUBIN - TOTAL 0.5 mg/dL (0.2-1.3); CALCIUM 8.8 mg/dL (8.5-10.1); CARBON DIOXIDE 27.9 mmol/L (21.0-32.0); CREATININE - SERUM 1.6 mg/dL (0.6-1.3); POTASSIUM - SERUM 4.5 mmol/L (3.5-5.1); PROTEIN - SERUM 6.9 g/dL (6.4-8.2)
--- NOTE | 2016-12-31 08:14 | NUR ---
ALERT AND ORIENTED X4. ARRIVE TO ROOM VIA WHEELCHAIR FROM ER. REPORT FROM MEDINA NAVA IN ER. AMBULATES FROM WHEELCHAIR TO BED WITH MINIMAL ASSISTANCE. GENERALIZED WEAKNESS CAUSED BY SOB. O2 @ 3L SAT-92%. STANDING SCALE USED. WEIGHT 194.8lbs. RT HAND IV INFUSING LEVAQUIN ANTIBIOTIC. SCDs ON. DENIES ANY NEEDS. BED LOCKED AND LOW. CALL LIGHT IN REACH. TWO SIDERAILS UP.
[2016-12-31] MEDS ORDERED: BETAPACE 80 MG80 MG PO (10:26)
[2016-12-31] MEDS ORDERED: SINGULAIR10 MG PO (11:04)
[2016-12-31] MEDS ORDERED: ULORIC40 MG PO (11:04)
[2016-12-31] MEDS ORDERED: NORVASC10 MG PO (11:05)
[2016-12-31] MEDS ORDERED: POTASSIUM CHLO10 ME1 PO (11:08)
[2016-12-31] MEDS ORDERED: ATIVAN0.5 MG PO (11:12)
[2016-12-31 12:00] VITALS: BP 156/91
[2016-12-31 15:38] VITALS: BP 156/91; BMI 33.4
--- NOTE | 2016-12-31 16:55 | NUR ---
ALERT AND ORIENTED X4. SITTING UP IN BED. UNCONTROLLED AFIB 126bpm ON TELEMETRY. EKG COMPLETE PLACED ON CHART. ANTONIA WALKER NOTIFIED. COMPLAINS OF SOB. RESPIRATORY PAGED FOR PRN UPDRAFT TREATMENTS. CONTINUE PLAN OF CARE. BED LOCKED AND LOW. CALL LIGHT IN REACH.
[2016-12-31 17:48] LABS: CKMB 1.1 U/L (0.0-3.6); CREATINE KINASE 66 UL (21-215)
[2016-12-31 17:50] LABS: TROPONIN-I < 0.017 ng/mL (0.000-0.060)
[2016-12-31 20:04] VITALS: BP 155/86
--- NOTE | 2016-12-31 20:22 | NUR ---
HS MEDS GIVEN, IV TO RIGHT HAND UNABLE TO FLUSH. REMOVED IV, CATH KINKED, TIP INTACT. WILL ATTEMPT TO RESITE IV SHORTLY.
[2016-12-31 21:28] LABS: CKMB 0.2 U/L (0.0-3.6); CREATINE KINASE 77 UL (21-215)
[2016-12-31 21:32] LABS: TROPONIN-I < 0.017 ng/mL (0.000-0.060)
--- NOTE | 2016-12-31 22:52 | NUR ---
PTS ASKING FOR SOMETHING FOR THE PAIN IN HER FEET, INFORMED HER THAT I HAD ALREADY GIVEN HER, HER LYRICA AND HAD NOTHHING ELSE ORDERED SO I HAVE PAGED THE DOCTOR TO ASK FOR SOMETHING ELSE FOR PAIN CONTROL.
--- NOTE | 2016-12-31 23:19 | NUR ---
NO RETURN CALL FROM FIRST PAGE OUT TO AARON THORNE APN SHEET METAL CONTRACTOR FOR DR ALEX, HAD ANSWERING SERVICE REPAGE FLORA.
--- NOTE | 2016-12-31 23:40 | NUR ---
TYLENOL #3, 1 TAB GIVEN FOR C/O PAIN TO FEET, RATES PAIN AT AN 8 ON PAIN SCALE.
[2016-12-31 23:53] VITALS: BP 144/78
[2017-01-01 03:47] VITALS: BP 112/51
[2017-01-01 05:09] LABS: BASOPHILS 0 % (0-2); EOSINOPHILS 0 % (0-7); HEMATOCRIT 25.7 % (36.0-48.0); HEMOGLOBIN 8.9 g/dL (12-16); IMMATURE GRANULOCYTES 0.6 % (0-5); LYMPHOCYTES 24.1 % (15-50); MCH 30.7 pg (26.0-34.0); MCHC 34.6 g/dL (31.0-37.0); MCV 88.6 fL (80.0-100.0); MEAN PLATELET VOLUME 10.2 fL (7.4-10.4); MONOCYTES 4.6 % (2-11); NEUTROPHILS 70.7 % (40-80); PLATELET COUNT 265 10x3/uL (130-400); RDW 14.4 % (11.5-14.5)
[2017-01-01 05:41] LABS: ALBUMIN 2.5 g/dL (3.4-5.0); ALKALINE PHOSPHATASE 62 U/L (46-116); ALT (SGPT) 17 U/L (10-68); BILIRUBIN - TOTAL 0.37 mg/dL (0.2-1.3); CARBON DIOXIDE 26.5 mmol/L (21.0-32.0); CHLORIDE - SERUM 99 mmol/L (98-107); CKMB 1.1 U/L (0.0-3.6); CREATINE KINASE 56 UL (21-215); CREATININE - SERUM 1.6 mg/dL (0.6-1.3); MAGNESIUM - SERUM 1.9 mg/dL (1.8-2.4); PHOSPHOROUS 3.8 mg/dL (2.5-4.9); POTASSIUM - SERUM 4.2 mmol/L (3.5-5.1); PRO BNP 17264 pg/mL (0-450); PROTEIN - SERUM 6.5 g/dL (6.4-8.2); SODIUM 134 mmol/L (136-145); THYROID STIMULATING HORMONE 0.72 uIU/mL (0.36-3.74); UREA NITROGEN 33 mg/dL (7-18); eGFR NON AFRICAN AMERICAN 33 mL/min (90-120)
[2017-01-01 05:43] LABS: CALC OSMOLALITY 289 mosm/kg (275-300); GLUCOSE 369 mg/dL (74-106); TROPONIN-I < 0.017 ng/mL (0.000-0.060)
--- NOTE | 2017-01-01 07:15 | NUR ---
AM ROUNDS- PT UP TO SIDE OF BED, PROVIDED PT WITH A WET WASH CLOTH. MEDIA SERVICES SPECIALIST AT BEDSIDE TO DO VITAL SIGNS. PT DENIES ANY NEEDS AT THIS TIME. CALL LIGHT IN REACH, BED LOW AND LOCKED, BEDSIDE RAILS X2. NAD NOTED, WILL CONTINUE TO MONITOR.
[2017-01-01 08:04] VITALS: BP 152/55
--- NOTE | 2017-01-01 08:40 | NUR ---
ADMINISTERED MORNING MEDICATIONS, PT UP TO SIDE OF BED, ORACLE OBIEE DEVELOPER AT BEDSIDE, FIXING TO HELP PT WITH BED BATH. PT ASKING ABOUT NASAL SPRAY AT PULMONOLIST WAS SUPPOSE TO ORDER. INFOMRED PT THAT I WOULD REMIND TO PUT ORDER IN. PT DENIES ANY NEEDS AT THIS TIME. CALL LIGHT IN REACH, NAD NOTED, WILL CONTINUE TO MONITOR.
--- NOTE | 2017-01-01 10:47 | NUR ---
ADMINISTERD TYLENOL WITH CODEIN FOR PAIN LEVEL OF 8/10. PT DENIES ANY OTHER NEEDS AT THIS TIME. FAMILY AT BEDSIDE, CALL LIGHT IN REACH, NAD NOTED, WILL CONTINUE TO MONITOR.
--- NOTE | 2017-01-01 11:43 | NUR ---
BLOOD SUGAR OF 461, 20UNITS OF HUMALOG GIVEN PER SLIDING SCALE, AND AARON THORNE ANP INFORMED ABOUT BLOOD SUGAR. PT DENIES ANY NEEDS AT THIS TIME. CALL LIGHT IN REACH, NA DNOTED WILL CONTINUE TO MONITOR.
[2017-01-01 11:44] VITALS: BP 130/83
[2017-01-01 14:14] VITALS: Ht 162.6 cm; Wt 113.1 kg
--- NOTE | 2017-01-01 15:11 | NUR ---
PT IN BED, DENIES ANY NEEDS AT THIS TIME. CALL LIGHT IN REACH, NAD NOTED, WILL CONTINUE TO MONITOR.
[2017-01-01 15:15] LABS: % SATURATION 15 % (15-55); IRON 32 ug/dl (35-150); TOTAL IRON BIND CAPACITY 207 ug/dl (260-445); UNSAT IRON BIND CAPACITY 175 ug/dl (150-375)
[2017-01-01 16:00] VITALS: BP 138/57
--- NOTE | 2017-01-01 17:07 | NUR ---
BLOOD SUGAR OF 433, 28UNITS OF HUMALOG GIVEN PER S/S. PT UP TO SIDE OF BED, EATING DINNER. PT DENIES ANY NEEDS AT THE TIME. CALL LIGHT IN REACH, NAD NOTED, WILL CONTINUE TO MONITOR.
[2017-01-01 18:59] LABS: APPEARANCE HAZY (CLEAR); BILIRUBIN NEGATIVE (NEGATIVE); COLOR YELLOW (YELLOW); EPITHELIAL CELLS 0-5 /hpf (0-5); GLUCOSE 100 mg/dL (NEGATIVE); KETONE NEGATIVE (NEGATIVE); LEUKOCYTE ESTERASE 1+ (NEGATIVE); NITRITE NEGATIVE (NEGATIVE); PROTEIN NEGATIVE (NEGATIVE); SPECIFIC GRAVITY 1.015 (1.005-1.020); UROBILINOGEN NORMAL (NORMAL); WHITE CELLS - URINE 0-5 /hpf (0-5)
[2017-01-01 19:00] VITALS: BP 148/61
[2017-01-01 19:00] LABS: BACTERIA FEW /hpf (NONE SEEN); HYALINE CAST 0-5 /lpf (NONE SEEN); MUCUS <1+ /lpf (NONE SEEN)
--- NOTE | 2017-01-01 20:10 | NUR ---
SHIFT ROUNDS - PT IS AWAKE IN THE BED. PT HAS A YELLOW BAND ON. BED AT LOWEST POSITION, SIDE RAILS UP X2, CALL VAZQUEZ IN USE/REACH, NON SKID SOCKS ON. MONITOR SHOWING CONTROLLED AFIB, HR 60. PT IS ON 3L O2 VIA NC. IV TO LEFT UPPPER ARM, NS AT KVO. NO NEEDS AT THIS TIME. WILL CONTINUE TO MONITOR
[2017-01-02] VITALS: BP 155/60
--- NOTE | 2017-01-02 01:02 | NUR ---
CALL LIGHT IN REACH, WILL CONTINUE WITH PLAN OF CARE.
[2017-01-02 04:00] VITALS: BP 112/58
[2017-01-02 06:42] LABS: BASOPHILS 0 % (0-2); EOSINOPHILS 0 % (0-7); HEMOGLOBIN 8.6 g/dL (12-16); IMMATURE GRANULOCYTES 0.5 % (0-5); LYMPHOCYTES 12.6 % (15-50); MCH 29.1 pg (26.0-34.0); MCHC 33.1 g/dL (31.0-37.0); MCV 87.8 fL (80.0-100.0); MEAN PLATELET VOLUME 10.1 fL (7.4-10.4); MONOCYTES 2.9 % (2-11); PLATELET COUNT 314 10x3/uL (130-400); RBC 2.96 10x6/uL (4.00-5.40); RDW 14.5 % (11.5-14.5)
[2017-01-02 06:52] LABS: WBC 12.5 10x3/uL (4.8-10.8)
[2017-01-02 07:08] LABS: ALBUMIN 2.9 g/dL (3.4-5.0); ANION GAP 13.6 mmol/L (8-16); BILIRUBIN - TOTAL 0.35 mg/dL (0.2-1.3); CALCIUM 9.5 mg/dL (8.5-10.1); CARBON DIOXIDE 26.1 mmol/L (21.0-32.0); CREATININE - SERUM 1.9 mg/dL (0.6-1.3); POTASSIUM - SERUM 4.7 mmol/L (3.5-5.1); PROTEIN - SERUM 7.1 g/dL (6.4-8.2)
[2017-01-02 07:27] LABS: FOLATE (FOLIC ACID) - SERUM 16.4 ng/mL (>3.0)
--- NOTE | 2017-01-02 07:28 | NUR ---
ADMINISTERED TYLENOL WITH CODEIN. PT DENIES ANY OTHER NEEDS AT THIS TIME. SUPERVISOR BUILDING MAINTENANCE AT BEDSIDE, NAD NOTED, WILL CONTINUE TO MONITOR.
[2017-01-02 08:00] VITALS: BP 154/61
--- NOTE | 2017-01-02 08:55 | NUR ---
MORNING MEDS GIVEN AT THIS TIME. PT UP TO SIDE OF BED, PROVIDED PT WITH A WARM WASH CLOTH. PT DENIES ANY OTHER NEEDS AT THIS TIME. CALL LIGHT IN REACH, NAD NOTED, WILL CONTINUE TO MONITOR.
--- NOTE | 2017-01-02 11:25 | NUR ---
BLOOD SUGAR OF 394, 24 UNITS OF HUMALOG GIVEN PER S/S. PT DENIES ANY NEEDS AT THIS TIME. CALL LIGHT IN REACH, NAD NOTED, WILL CONTINUE TO MONITOR.
[2017-01-02 12:00] VITALS: BP 140/55
[2017-01-02 16:00] VITALS: BP 148/61
[2017-01-02 19:00] VITALS: BP 166/83
--- NOTE | 2017-01-02 22:38 | NUR ---
ER PHYSICIAN CALLED REGARDING FSBS RESULTS, MEDICATE PER SLIDING SCALE.
[2017-01-03] VITALS: BP 158/62
--- NOTE | 2017-01-03 03:11 | NUR ---
PT RESTING QUIETLY, NO S/S OF ACUTE DISTRESS, RESPIRATIONS REGULAR AND UNLABORED.
[2017-01-03 04:00] VITALS: BP 166/64
[2017-01-03 05:27] LABS: BASOPHILS 0 % (0-2); EOSINOPHILS 0 % (0-7); HEMATOCRIT 27.6 % (36.0-48.0); IMMATURE GRANULOCYTES 1.2 % (0-5); LYMPHOCYTES 11.2 % (15-50); MCH 28.7 pg (26.0-34.0); MCHC 32.6 g/dL (31.0-37.0); MCV 87.9 fL (80.0-100.0); MEAN PLATELET VOLUME 10.3 fL (7.4-10.4); MONOCYTES 5.9 % (2-11); NEUTROPHILS 81.7 % (40-80); PLATELET COUNT 346 10x3/uL (130-400); RBC 3.14 10x6/uL (4.00-5.40); RDW 14.5 % (11.5-14.5); WBC 11.1 10x3/uL (4.8-10.8)
[2017-01-03 05:44] LABS: ANION GAP 12.7 mmol/L (8-16); BILIRUBIN - TOTAL 0.34 mg/dL (0.2-1.3); CALCIUM 9.1 mg/dL (8.5-10.1); CARBON DIOXIDE 26.4 mmol/L (21.0-32.0); CREATININE - SERUM 1.9 mg/dL (0.6-1.3); POTASSIUM - SERUM 4.1 mmol/L (3.5-5.1)
--- NOTE | 2017-01-03 06:51 | NUR ---
PT SITTING ON SIDE OF BED NO S/S OF DISTRESS.
[2017-01-03 08:00] VITALS: BP 157/60
--- NOTE | 2017-01-03 08:23 | NUR ---
ASSESSMENT DONE. DENIES NEED.
--- NOTE | 2017-01-03 10:19 | NUR ---
UP SOB WITH CALL LIGHT IN REACH. RESP UL ON . WILL CONT. PLAN OF CARE.
[2017-01-03 12:00] VITALS: BP 133/53
[2017-01-03 16:00] VITALS: BP 156/55
--- NOTE | 2017-01-03 17:45 | NUR ---
WITHOUT CHANGES OR DISTRESS NOTED AT THIS TIME. DENIES NEEDS.
[2017-01-03 19:00] VITALS: BP 150/83
--- NOTE | 2017-01-04 01:51 | NUR ---
RECIEVED PATIENT AND REPORT, ALERT AND ORIENTED X 3, SIDERAILS UP X2 , BED LOW AND LOCKED, CALL LIGHT AND BEDSIDE TABLE IN REACH, NO ACUTE DISTRESS NOTED, PATIENT DENIES NEEDS, CPOC.
--- NOTE | 2017-01-04 01:58 | NUR ---
PRN TYLENOL #3 GIVEN FOR FOR PAIN AT 2145.
[2017-01-04 04:00] VITALS: BP 100/76
--- NOTE | 2017-01-04 06:17 | NUR ---
IV STOPPED DUE TO INFILTRATETION, UNANABLE TO RESITE AT THIS TIME.
[2017-01-04 06:27] LABS: BASOPHILS 0 % (0-2); EOSINOPHILS 0 % (0-7); HEMATOCRIT 27.7 % (36.0-48.0); IMMATURE GRANULOCYTES 3.6 % (0-5); MCH 28.8 pg (26.0-34.0); MCHC 32.5 g/dL (31.0-37.0); MCV 88.5 fL (80.0-100.0); MEAN PLATELET VOLUME 9.6 fL (7.4-10.4); MONOCYTES 12.1 % (2-11); NEUTROPHILS 67.3 % (40-80); PLATELET COUNT 363 10x3/uL (130-400); RBC 3.13 10x6/uL (4.00-5.40); RDW 14.4 % (11.5-14.5); WBC 10.9 10x3/uL (4.8-10.8)
[2017-01-04 07:13] LABS: ALBUMIN 3.1 g/dL (3.4-5.0); ANION GAP 13.5 mmol/L (8-16); BILIRUBIN - TOTAL 0.34 mg/dL (0.2-1.3); CALCIUM 8.7 mg/dL (8.5-10.1); CARBON DIOXIDE 26.8 mmol/L (21.0-32.0); CREATININE - SERUM 1.9 mg/dL (0.6-1.3); POTASSIUM - SERUM 4.3 mmol/L (3.5-5.1); PROTEIN - SERUM 6.9 g/dL (6.4-8.2)
--- NOTE | 2017-01-04 07:54 | NUR ---
ALERT AND ORIENTED X4. SITTING UP ON SIDE OF BED. SINUS SAMANTHA 25bpm ON TELEMETRY. ON FLOOR. NOTIFY OF LOW HEART RATE. BUN AND CR HIGHER THAN BASELINE. HOLD BUMEX AND BETAPACE TODAY PER . COMPLAINS OF FEELING DIZZY. INSTRUCT TO CALL FOR HELP WHEN GOING TO RESTROOM TO PREVENT FALL. BED ALARM ON. BED LOCKED AND LOW. CALL LIGHT IN REACH. TWO SIDERAILS UP.
[2017-01-04 08:00] VITALS: BP 132/50
[2017-01-04 12:00] VITALS: BP 132/57
[2017-01-04 16:00] VITALS: BP 146/51
--- NOTE | 2017-01-04 16:00 | NUR ---
ALERT AND ORIENTED X4. FAMILY AT BEDSIDE. SINUS SAMANTHA 53bpm ON TELEMETRY. PAIN MANAGEMENT CONTINUED FOR CHRONIC PAIN DUE TO NEUROPATHY. SOB TREATED WITH OXYGEN THERAPY AND UPDRAFTS. DENIES ANY NEEDS. BED LOCKED AND LOW. CALL LIGHT IN REACH. TWO SIDERAILS UP.
--- NOTE | 2017-01-04 19:59 | NUR ---
RESUMED CARE OF PT, UP ON SIDE OF BED RESPIRATIONS EVEN AND UNLABORED ON 3LPM VIA NC. 57 SB ON TELEMETRY. TYELENOL #3 GIVEN FOR PAIN 8:10. CALL LIGHT IN REACH. WILL CONTINUE TO MONITOR. SEE NURSE ASSESSMENT.
[2017-01-04 20:36] VITALS: BP 156/88
[2017-01-04 23:59] VITALS: BP 148/82
[2017-01-05 04:00] VITALS: BP 132/60
[2017-01-05 05:08] LABS: BASOPHILS 0.1 % (0-2); EOSINOPHILS 0.1 % (0-7); HEMATOCRIT 26.2 % (36.0-48.0); HEMOGLOBIN 8.5 g/dL (12-16); IMMATURE GRANULOCYTES 5.6 % (0-5); LYMPHOCYTES 16.9 % (15-50); MCH 28.8 pg (26.0-34.0); MCHC 32.4 g/dL (31.0-37.0); MCV 88.8 fL (80.0-100.0); MEAN PLATELET VOLUME 10.2 fL (7.4-10.4); MONOCYTES 10.9 % (2-11); NEUTROPHILS 66.4 % (40-80); PLATELET COUNT 303 10x3/uL (130-400); RBC 2.95 10x6/uL (4.00-5.40); RDW 14.5 % (11.5-14.5); WBC 10.2 10x3/uL (4.8-10.8)
[2017-01-05 05:33] LABS: ALBUMIN 2.9 g/dL (3.4-5.0); ANION GAP 12.5 mmol/L (8-16); BILIRUBIN - TOTAL 0.32 mg/dL (0.2-1.3); CALCIUM 8.5 mg/dL (8.5-10.1); CARBON DIOXIDE 25.8 mmol/L (21.0-32.0); CREATININE - SERUM 1.5 mg/dL (0.6-1.3); POTASSIUM - SERUM 4.3 mmol/L (3.5-5.1); PROTEIN - SERUM 6.3 g/dL (6.4-8.2)
[2017-01-05 08:23] VITALS: BP 149/80
[2017-01-05 12:21] VITALS: BP 126/62
--- NOTE | 2017-01-05 13:29 | NUR ---
ALERT AND ORIENTED X4. RESTING IN BED. COMPLAINS OF FEELING TIRED. CONTROLLED A-FIB 93bpm ON TELEMETRY. REFUSE PHYSICAL THERAPY AT 10am. DENIES ANY NEEDS. CONTINUE PLAN OF CARE. BED LOCKED AND LOW. CALL LIGHT IN REACH. TWO SIDERAILS UP. RECIEVES ELIQUIS. NO SCDs.
--- NOTE | 2017-01-05 14:46 | NUR ---
Nutrition follow-up: Diet: ADA consistent CHO PO intake ~75% average of meals labs reviewed Wt: 203# RDN following.
--- NOTE | 2017-01-05 15:02 | CN ---
PATIENT NAME:VINCENZO ALONSO MEDICAL RECORD: [id number] : 40 LOCATION:D. D.2138 ADMIT DATE: 12/31/16 ACCOUNT: [id number] CONSULTING PHYSICIAN: YEYO ELLIOTT MD REFERRING PHYSICIAN: UTE ALEX MD DATE OF CONSULTATION: 12/31/2016 CARDIOLOGY CONSULTATION DIAGNOSES: 1. Atrial fibrillation. 2. Hypertension. 3. Aortic stenosis. 4. Coronary artery disease. HISTORY OF PRESENT ILLNESS: Mrs. Alonso is well known to our service. She has been in the hospital unfortunately every month for the last few months. She does have atrial fibrillation, it is chronic at this point. She is on sotalol 80 mg b.i.d. for rate control. Her heart rate is under a 100 with this as well. She has hypertension for which she is on Norvasc. She is on stroke prophylaxis with Eliquis. A recent echocardiogram revealed ejection fraction in the 60% range mild aortic stenosis. PHYSICAL EXAMINATION: GENERAL APPEARANCE: Well-nourished, well-developed, appears stated age. Level of distress, comfortable. PSYCHIATRIC: Mental status, alert, normal affect. Orientation, oriented to time, place and person. EYES: Lids and conjunctiva, noninjected. No discharge, no pallor. ENT: Lips, teeth, gums, normal dentition. Oropharynx, no cyanosis, no pallor. NECK: Carotid arteries, bilateral normal upstroke, no bruits, no thrills. JUGULAR VEINS: No jugular venous pressure or distention. CERVICAL LYMPH NODES: Nontender, nonenlarged. THYROID: Not enlarged. Nontender. No nodules. LUNGS: Respiratory effort, unlabored. CHEST: Normal curvature. No thoracic deformity. No chest wall tenderness. Percussion, resonant. Auscultation, clear. No wheezes, no rales, no rhonchi. CARDIOVASCULAR: Precordial exam, nondisplaced. No heaves or pericardial thrills. Rate and rhythm, regular. Heart sounds, normal S1, normal S2. No S3, no gallop, no rub. Systolic murmur, not heard. Diastolic murmur, not heard. EXTREMITIES: No cyanosis, no edema. Peripheral pulses, full and equal in all extremities, except as noted. No bruits appreciated. ABDOMEN: Soft, nondistended. Normal aorta. No bruit. Nontender. No masses. Liver, nontender, no hepatomegaly. Spleen, nontender, no splenomegaly. MUSCULOSKELETAL: No joint tenderness. No joint swelling. No erythema. NEUROLOGICAL: Normal gait, normal strength, normal tone. SKIN: Warm and dry. REVIEW OF SYSTEMS: The patient reports easy bruising but reports no swollen glands. The patient reports no fever, no night sweats, no significant weight gain, no significant weight loss. No significant exercise tolerance. The patient reports no dry eyes, no irritation, no vision change. Patient reports no difficulty hearing and no ear pain. Patient reports no frequent nose bleeds or nose and sinus problems. Patient reports on arm pain on exertion. No shortness of breath while lying down. No history of heart murmur. Patient CONSULT REPORT [id number] ALONSOVINCENZO L reports no cough, no wheezing or coughing up blood. Patient reports no abdominal pain, no vomiting. Normal appetite. No diarrhea and not vomiting blood. No nausea and no constipation. Patient reports no incontinence. No difficulty urinating. No hematuria. No increased frequency. Patient reports no muscle aches. No weakness, no arthralgias, no back pain. No swelling of the extremities. Patient reports no abnormal mole, no jaundice, no rashes. Reports no loss of consciousness. No weakness and no numbness. No seizures, dizziness, or headaches. The patient reports no depression, no sleep disturbance, feeling safe in a relationship and no alcohol abuse. Patient reports on fatigue. Reports no runny nose or sinus pressure. No itching, no hives, and no frequent sneezing. OVERALL IMPRESSION: Stable cardiac, continue her current cardiac medications. No other cardiac workup treatment is necessary. TRANSINT:[id number] Voice Confirmation ID: [id number] DOCUMENT ID: [id number] YEYO ELLIOTT MD at 1502 CC: [id number] DICTATION DATE: 12/31/16 1233 MATERIALS PLANNING MANAGER: 12/31/161955 [place] [id number]
[2017-01-05 16:59] VITALS: BP 138/72
--- NOTE | 2017-01-05 18:50 | NUR ---
SLEEPING IN BED. NO DINNER EATEN. TRAY LEFT IN ROOM. PREPARE SHIFT CHANGE REPORT. CONTROLLED AFIB 78bpm ON TELEMETRY. CONTINUE PLAN OF CARE AND SAFETY PRECAUTIONS.
[2017-01-05 21:16] VITALS: BP 169/80
--- NOTE | 2017-01-05 21:43 | NUR ---
PT LYING IN BED, EYES CLOSED, RESPIRATIONS EVEN AND UNLABORED. PT EASILY ROUSABLE TO VERBAL STIMULI, DENIES ANY NEEDS. CONTINUE TO MONITOR CLOSELY. BED LOW, CALL LIGHT IN REACH, SIDE RAILS X 2, HOB 20 DEGREES.
[2017-01-05 23:55] VITALS: BP 141/59
[2017-01-06 03:56] VITALS: BP 130/61
[2017-01-06 06:27] LABS: BASOPHILS 0.1 % (0-2); EOSINOPHILS 0 % (0-7); HEMATOCRIT 26.4 % (36.0-48.0); HEMOGLOBIN 8.7 g/dL (12-16); IMMATURE GRANULOCYTES 6.6 % (0-5); LYMPHOCYTES 14.5 % (15-50); MCH 29.2 pg (26.0-34.0); MCV 88.6 fL (80.0-100.0); MONOCYTES 9.1 % (2-11); NEUTROPHILS 69.7 % (40-80); PLATELET COUNT 294 10x3/uL (130-400); RBC 2.98 10x6/uL (4.00-5.40); RDW 14.9 % (11.5-14.5); WBC 9.8 10x3/uL (4.8-10.8)
[2017-01-06 07:09] LABS: ALBUMIN 2.8 g/dL (3.4-5.0); ANION GAP 10.2 mmol/L (8-16); BILIRUBIN - TOTAL 0.3 mg/dL (0.2-1.3); CALCIUM 8.2 mg/dL (8.5-10.1); CARBON DIOXIDE 28.2 mmol/L (21.0-32.0); CREATININE - SERUM 1.4 mg/dL (0.6-1.3); POTASSIUM - SERUM 4.4 mmol/L (3.5-5.1); PROTEIN - SERUM 5.7 g/dL (6.4-8.2)
[2017-01-06 08:00] VITALS: BP 142/82
[2017-01-06 11:56] VITALS: BP 154/78
--- NOTE | 2017-01-06 17:20 | NUR ---
Patient Name: VINCENZO KOEHLER Admission Status: ER Accout number: [id number] Admission Date: 12-31-2016 : 1940 Admission Diagnosis:SHORTNESS OF BREATH Attending: MARLENI Current LOS: 6 Anticipated DC Date: Planned Disposition: Nursing Facility [facility] Cert Primary Insurance: MEDICARE A & B PLANNED EXTERNAL PROVIDER: [facility] MED[facility] BED Discharge Planning Comments: * Is the patient Alert and Oriented? Yes 0 * How many steps to enter\exit or inside your home? NONE 0 * PCP DR. CARRION 0 * Pharmacy [facility] 0 * Preadmission Environment [facility] 0 * Facility Name [facility] 0 * ADLs Partial Dependent 0 * Partial ADLs (Assistance needed) Bathing Dressing Medication Management 0 * Equipment Nebulizer Oxygen Rolling Walker 0 * Other Equipment ALL MEDICAL EQUIPMENT PROVIDED 0 * List name and contact numbers for known caregivers / representatives who currently or will assist patient after discharge: JACK PHILLIPS, SON, 0 * Community resources currently utilized None 0 * Please name any agencies selected above. NONE 0 * Additional services required to return to the preadmission environment? No 0 * Can the patient safely return to the preadmission environment? Yes 0 * Has this patient been hospitalized within the prior 30 days at any hospital? Yes 0 CM MET WITH PT IN ROOM TO DISCUSS DISCHARGE PLANNING AND NEEDS. PT REPORTS LIVING AT [facility] FOR THE PAST TWO YEARS IN CRITICAL CARE EDUCATOR CARE. PT REPORTS USING A WALKER AND OXYGEN AT THE FACILITY. PT STATES SHE WILL SOON BE MOVING TO [facility] IN [place] ONCE HER MEDICAID IS APPROVED FOR ASSISTED LIVING. PT REPORTS FEELING SAFE AT [facility]. PT DENIES DISCHARGE NEEDS, REPORTS THE [facility] WILL PICK HER UP FOR DISCHARGE HOME. IMPORTANT MESSAGE FROM MEDICARE PROVIDED AND EXPLAINED. FOR DISCHARGE, NOTIFY [facility] EARLY IN THE MORNING POSSIBLE FOR DISCHARGE; NURSE REPORT TO BE CALLED TO [phone]; FAXE DISCHARGE INFORMATION TO [phone]. [facility] TO TRANSPORT. Learn To Swim Instructor: Tyrone Guzman
[2017-01-06 17:48] VITALS: BP 152/65
--- NOTE | 2017-01-06 18:24 | NUR ---
ALERT AND ORIENTED X4. SITTING ON SIDE OF BED. FAMILY AT BEDSIDE. UNCONTROLLED AFIB 110bpm ON TELEMETRY. EXPRESSES BEING READY TO GO HOME. ALL MEDICATIONS SWITCHED TO PO MEDS. DENIES ANY NEEDS AT THIS TIME. CONTINUE PLAN OF CARE AND SAFETY PRECAUTIONS.
[2017-01-06 19:00] VITALS: BP 166/86
--- NOTE | 2017-01-06 21:43 | NUR ---
PT AWAKE, ALERT, ORIENTED, SITTING ON SIDE OF BED, DENIES ANY NEEDS. CONTINUE TO MONITOR CLOSELY. BED LOW, CALL LIGHT IN REACH, SIDE RAILS X 2, HOB 20 DEGREES. PT TO CALL WHEN NEEDING ANY ASSIST.
[2017-01-07] VITALS: BP 140/92
[2017-01-07 04:00] VITALS: BP 166/89
--- NOTE | 2017-01-07 05:35 | NUR ---
PT AWAKE, ALERT, ORIENTED, LOOKING FORWARD TO BEING D/C TODAY. PT DENIES ANY NEEDS. CONTINUE TO MONITOR CLOSELY.
[2017-01-07 08:00] VITALS: BP 156/76
--- NOTE | 2017-01-07 08:01 | NUR ---
AM ROUNDING- RECEIVED REPORT FROM JUNIOR PROGRAMMER NURSE OSMAR. PT IS CURRENTLY SITTING UP ON SIDE OF BED READING BOOK. ON 02 AT 3L VIA NC. ON MONITOR SHOWING CONTROLLED AFIB, HR 88. IV SEEN TO RIGHT FOREARM THAT IS CURRENTLY SALINE LOCKED. NO NEED AT CURRENT TIME. WILL CONTINUE TO MONITOR AND CONTINUE WITH PLAN OF CARE.
[2017-01-07 12:00] VITALS: BP 155/70
[2017-01-07] MEDS ORDERED: BETAPACE 80 MG80 MG PO (13:54)
[2017-01-07] MEDS ORDERED: MUCINEX DM ER1 EAC1 PO (13:58)
[2017-01-07] MEDS ORDERED: FLUTICASONE PRO16 GM NASAL (13:58)
[2017-01-07] MEDS ORDERED: TESSALON PERLE100 MG PO (13:58)
[2017-01-07] MEDS ORDERED: Levaquin PO (14:01)
--- NOTE | 2017-01-07 14:22 | NUR ---
Patient Name: VINCENZO KOEHLER Encounter No: [id number] : 1940 Primary Insurance: MEDICARE A & B Anticipated DC Date: 01-07-2017 Planned Disposition: Nursing Facility [facility] Cert External Planned Provider: [facility], MEDICARE REHAB BED DCP follow-up note: CM SPOKE TO ANTONIA THORNE WHO INFORMED CM THAT PT WILL DISCHARGE TODAY. CM SPOKE TO PT WHO IS UP, DRESSED AND REPORTS WANTING TO RETURN HOME TO [facility] NOW AND NEEDS THE [facility] TO PICK HER UP. CM CALLED [facility], , SPOKE TO PERLA WHO REPORTS THEY DO NO HAVE VAN AVAILABILITY AND IT IS LATE TO RECEIVE PT TODAY; PERLA INFORMED CM THAT THE [facility] WILL BRIQUETTE MACHINE OPERATOR HELPER PT TOMORROW MORNING AT 0900, WITH OXYGEN. CM SPOKE TO PT WHO WANTS TO HAVE HER FAMILY PICK HER UP AND TAKE HER TO THE [facility] TODAY. CM CALLED PERLA AT [facility] AT PT'S REQUEST, PERLA AGAIN INFORMED CM TO TELL PT THAT THE [facility] WILL BRIQUETTE MACHINE OPERATOR HELPER PT TOMORROW AT 0900 FOR PT TO ADMIT TO SKILLED BED TOMORROW. CM NOTIFIED PT WHO IS IN AGREEMENT WITH DISCHARGE PLAN. PT STATES SHE WILL NOTIFY HER CHILDREN AND CHANGE BACK INTO HER PT GOWN. CM NOTIFIED BEDSIDE NURSE AND FLOW COODINATOR. CM FAXED REFERRAL AND DISCHARGE ORDER TO [facility], . [facility] TO BRIQUETTE MACHINE OPERATOR HELPER PT ON 01-08-17 AT 0900; FAX DISCHARGE INSTRUCTIONS AND MED LIST TO [phone], NURSE REPORT TO BE CALLED TO [facility] AT [phone]. Tyrone Guzman, CASE MANAGEMENT
[2017-01-07 15:51] VITALS: BP 165/74
--- NOTE | 2017-01-07 16:23 | NUR ---
PT IS CURRENTLY LAYING IN BED ON RIGHT SIDE WITH EYES OPEN RESTING. PT IS C/O 7/10 PAIN FROM LEFT FOOT AREA. PT GIVEN TYLENOL 3 ORDERED FOR PAIN. NO OTHER NEED AT CURRENT TIME. WILL CONTINUE TO MONITOR.
--- NOTE | 2017-01-07 18:05 | NUR ---
PT IS CURRENTLY SITTING UP ON SIDE OF BED. NO NEED AT CURRENT TIME. WILL CONTINUE TO MONITOR AND CONTINUE WITH PLAN OF CARE.
[2017-01-07 19:00] VITALS: BP 128/59
--- NOTE | 2017-01-07 19:30 | NUR ---
PT IN BED WITH HOB UP FOR COMFORT. EYES CLOSED. CHEST RISING AND FALLING. PT'S CODE STATUS IS DNR. UP ADLIB. ELECTROLYTE PROTOCOL. FSBS ACHS. TELEMETRY. O2 @ 3L VIA N/C. BED IN LOWEST POSITION AND CALL LIGHT WITHIN REACH.
--- NOTE | 2017-01-07 20:29 | NUR ---
MARINE SPECIALIST AT BEDSIDE TO OBTAIN VITALS, CALL LIGHT IN REACH. WILL CONTINUE WITH PLAN OF CARE. 88 CAF ON TELEMETRY
--- NOTE | 2017-01-07 23:45 | NUR ---
D/C RIGHT FA SALINE LOC. PT TOLERATED PROCEDURE WELL.
--- NOTE | 2017-01-07 23:50 | NUR ---
D/C RIGHT FA SALINE LOC. CATH TIP INTACT. PT TOLERATED PROCEDURE WELL.
[2017-01-08] VITALS: BP 152/59
--- NOTE | 2017-01-08 03:38 | NUR ---
PT IN BED WITH HOB UP FOR COMOFRT. EYES CLOSED. CHEST RISING AND FALLING. BED IN LOWEST POSITION AND CALL LIGHT WITHIN REACH.
[2017-01-08 04:00] VITALS: BP 134/68
--- NOTE | 2017-01-08 07:57 | NUR ---
AM ROUNDING- RECEIVED REPORT FROM CORRECTIONAL THERAPY DIRECTOR NURSE DEMARCUS. PT IS CURRENTLY SITTING UP ON SIDE OF BED AWAITING D/C. ON 02 AT 3L VIA NC. ON MONITOR SHOWING CONTROLLED A-FIB, HR 93. IV IS OUT (PER CORRECTIONAL THERAPY DIRECTOR NURSE PT DIDN'T WANT IT SO CORRECTIONAL THERAPY DIRECTOR NURSE DEMARCUS REMVOED IT). DNR. PT IS BEING D/C BACK TO [facility] THIS AM. WILL CALL REPORT DIRECTED AND CONTINUE TO MONITOR.
--- NOTE | 2017-01-08 08:09 | NUR ---
CALLED REPORT TO [facility] AND GAVE REPORT TO JORDON MEADOWS LPN. WILL D/C PT PER POLICY AND AWAIT LONGTERM TO COME GET PT. WILL CONTINUE TO MONITOR.
[2017-01-08 08:29] VITALS: BP 180/78
--- NOTE | 2017-01-08 08:42 | NUR ---
D/C INSTRUCTIONS EXPLAINED TO PT. D/C PAPERWORK SIGNED BY PT AND PLACED IN CHART. NO IV. HEART MONITOR REMOVED AND RETURNED TO [place] IN TELEMETRY BY DEB [place]. AWAITING [facility] TO COME GET PT. WILL CONTINUE TO MONITOR.
--- NOTE | 2017-01-08 10:19 | NUR ---
0902- PT D/C VIA WHEELCHAIR ACCOMPANIED BY [facility] STAFF MEMBER WITH PORTABLE 02 ON AND BELONGINGS IN HAND.
== END 2017-01-08 10:27 | DRG 292 ==
LOC: D.ER 03:56 → D.MS 06:21 → D.M2 06:21
PROVIDERS: Family Medicine; ADMIT Family Medicine
DX: I11.0 Hypertensive heart disease with heart failure (principal); J44.1 Chronic obstructive pulmonary disease with (acute) exacerbation; N25.81 Secondary hyperparathyroidism of renal origin; I50.9 Heart failure, unspecified; I08.3 Combined rheumatic disorders of mitral, aortic and tricuspid valves; K21.9 Gastro-esophageal reflux disease without esophagitis; I27.2 Other secondary pulmonary hypertension; D64.9 Anemia, unspecified; R91.1 Solitary pulmonary nodule; Z99.81 Dependence on supplemental oxygen; E11.65 Type 2 diabetes mellitus with hyperglycemia; I25.10 Atherosclerotic heart disease of native coronary artery without angina pectoris; E03.9 Hypothyroidism, unspecified; Z86.73 Personal history of transient ischemic attack (TIA), and cerebral infarction without residual deficits; Z66 Do not resuscitate

== ENCOUNTER → 2017-02-18 08:23 | Outpatient (CLI) | payer MEDICARE, BC, MEDICAID ==
[2017-01-01 14:14] VITALS: BMI 33.3
[~2017-02-18 08:23] MED LIST changes: +FLUTICASONE PRO16 GM NASAL; +Levaquin PO; +MUCINEX DM ER1 EAC1 PO; +TESSALON PERLE100 MG PO
== END | disposition home or self-care (01) ==
LOC: D.RAD 08:00
DX: J44.1 Chronic obstructive pulmonary disease with (acute) exacerbation (principal); I11.0 Hypertensive heart disease with heart failure; I50.9 Heart failure, unspecified

== ENCOUNTER → 2017-05-26 09:25 | Outpatient (CLI) | payer MEDICARE, BC, MEDICAID ==
[2017-01-01 14:14] VITALS: BMI 33.3
== END | disposition home or self-care (01) ==
LOC: D.RT 05-20 08:00 → D.RAD 05-20 09:00 → D.RT 09:25
DX: J44.9 Chronic obstructive pulmonary disease, unspecified (principal)

== ENCOUNTER 2017-07-03 10:44 | Emergency (ER) | payer MEDICARE, BC, MEDICAID ==
[2017-01-01 14:14] VITALS: BMI 33.3
[2017-07-03 11:12] LABS: APPEARANCE CLEAR (CLEAR); BILIRUBIN NEGATIVE (NEGATIVE); COLOR YELLOW (YELLOW); GLUCOSE NEGATIVE (NEGATIVE); KETONE NEGATIVE (NEGATIVE); NITRITE NEGATIVE (NEGATIVE); PROTEIN NEGATIVE (NEGATIVE); UROBILINOGEN NORMAL (NORMAL)
[2017-07-03 11:13] LABS: BASOPHILS 0.4 % (0-2); EOSINOPHILS 1.7 % (0-7); HEMOGLOBIN 10.8 g/dL (12-16); IMMATURE GRANULOCYTES 0.3 % (0-5); LYMPHOCYTES 32.7 % (15-50); MCH 30.5 pg (26.0-34.0); MCHC 32.7 g/dL (31.0-37.0); MCV 93.2 fL (80.0-100.0); MEAN PLATELET VOLUME 10.2 fL (7.4-10.4); MONOCYTES 9.4 % (2-11); NEUTROPHILS 55.5 % (40-80); RBC 3.54 10x6/uL (4.00-5.40); RDW 15.3 % (11.5-14.5); WBC 10.3 10x3/uL (4.8-10.8)
[2017-07-03 11:20] LABS: PLATELET COUNT 194 10x3/uL (130-400)
[2017-07-03 11:35] LABS: ALBUMIN 3.5 g/dL (3.4-5.0); ALKALINE PHOSPHATASE 96 U/L (46-116); ALT (SGPT) 24 U/L (10-68); CALC OSMOLALITY 295 mosm/kg (275-300); CALCIUM 9.1 mg/dL (8.5-10.1); CARBON DIOXIDE 33.3 mmol/L (21.0-32.0); CHLORIDE - SERUM 104 mmol/L (98-107); CREATININE - SERUM 2.3 mg/dL (0.6-1.3); POTASSIUM - SERUM 4.5 mmol/L (3.5-5.1); SODIUM 142 mmol/L (136-145); UREA NITROGEN 52 mg/dL (7-18); eGFR NON AFRICAN AMERICAN 22 mL/min (90-120)
[2017-07-03 11:39] LABS: GLUCOSE 76 mg/dL (74-106)
[2017-07-03 11:45] LABS: CHOL - HDL RATIO 2.4 ratio (2.3-4.1); CHOLESTEROL, TOTAL 139 mg/dL (0-200); CKMB 1.3 U/L (0.0-3.6); CREATINE KINASE 89 UL (21-215); HDL CHOLESTEROL 59 mg/dL (32-96); LDL CHOLESTEROL 54 mg/dL (0-100); LDL-HDL RATIO 0.9 ratio (1.5-3.5); TRIGLYCERIDE 130 mg/dL (30-200); TROPONIN-I < 0.017 ng/mL (0.000-0.060)
== END 2017-07-03 12:14 | disposition home or self-care (01) ==
LOC: D.ER 10:44
PROVIDERS: Family Medicine
DX: I20.8 Other forms of angina pectoris (principal); R07.9 Chest pain, unspecified; J44.9 Chronic obstructive pulmonary disease, unspecified; I48.91 Unspecified atrial fibrillation

== ENCOUNTER 2017-08-18 13:29 | Emergency (ER) | payer MEDICARE, BC, MEDICAID ==
[2017-01-01 14:14] VITALS: BMI 33.3
[2017-08-18 14:17] LABS: BASOPHILS 0.4 % (0-2); EOSINOPHILS 2.2 % (0-7); HEMATOCRIT 32.9 % (36.0-48.0); HEMOGLOBIN 10.4 g/dL (12-16); IMMATURE GRANULOCYTES 0.3 % (0-5); LYMPHOCYTES 24.7 % (15-50); MCH 30.7 pg (26.0-34.0); MCHC 31.6 g/dL (31.0-37.0); MCV 97.1 fL (80.0-100.0); MONOCYTES 9.9 % (2-11); NEUTROPHILS 62.5 % (40-80); PLATELET COUNT 201 10x3/uL (130-400); RBC 3.39 10x6/uL (4.00-5.40); RDW 13.6 % (11.5-14.5)
[2017-08-18 14:38] LABS: INR 1.31 (0.85-1.17); PROTIME 15.8 SECONDS (11.6-15.0)
[2017-08-18 14:41] LABS: ALBUMIN 3.6 g/dL (3.4-5.0); ANION GAP 8.8 mmol/L (8-16); BILIRUBIN - TOTAL 0.33 mg/dL (0.2-1.3); CALCIUM 8.7 mg/dL (8.5-10.1); CARBON DIOXIDE 34.4 mmol/L (21.0-32.0); CREATININE - SERUM 1.9 mg/dL (0.6-1.3); POTASSIUM - SERUM 4.2 mmol/L (3.5-5.1); PROTEIN - SERUM 7.4 g/dL (6.4-8.2)
== END 2017-08-18 16:16 | disposition home or self-care (01) ==
LOC: D.ER 13:29
PROVIDERS: Family Medicine
DX: E11.649 Type 2 diabetes mellitus with hypoglycemia without coma (principal); N18.9 Chronic kidney disease, unspecified; I48.91 Unspecified atrial fibrillation

== ENCOUNTER 2017-09-01 22:04 | Inpatient (IN) | payer MEDICARE, BC, MEDICAID ==
--- NOTE | ~2017-09-01 | HEMODYNAMI ---
PATIENT:VINCENZO KOEHLER MEDICAL RECORD: [id number] : [birth year] LOCATION:[facility] D.2106 ADMISSION DATE: 09/02/17 Generatedon:09/09/201710:19 Patient name: VINCENZO KOEHLER Patient #: [id number] SSN: : 1940 Date of study: 09/09/2017 Page: Of Hemodynamic Procedure Report Patient Data Patient Demographics Procedure consent was obtained First Name: VINCENZO Gender: Female Last Name: RODO : 1940 Middle Initial: L Age: 77 year(s) Patient #: [id number] Race: Additional ID: [id number] Contact details Address: [address] [address] State: [place] City: [place] Zip code: [address] Past Medical History History of disease Date Diagnosis Comments CAD Peripheral vascular disease Cerebrovascular disease->TIA Allergies Allergen Reaction Date Comments Reported RANDEE inhibitors 09/08/2017 Sulfa drugs 09/08/2017 Other allergy 09/08/2017 Ceftaroline, Fosamil, Acetate, Pravastatin, Metronidazole Other allergy 09/09/2017 Sulfa, RANDEE Inhibitors, ceftaroline fosamil acetate, metronidazole, pravastatin. Admission Admission Data Admission Date: 09/02/2017 Admission Time: 0:27 Admit Source: Other Room #: D.2106 Lab Results Lab Result Date: 09/09/2017 Lab Result Time: 4:37 Biochemistry Name Units Result Min Max BUN mg/dl 37 --(----)-* 7 18 Creatinine mg/dl 1.7 --(----)-* 0.6 1.3 CBC Name Units Result Min Max Hematocrit % 30.2 *-(----)-- 42 54 Hemoglobin g/dl 9.6 *-(----)-- 13.5 17.5 Procedure Procedure Types Cath Procedure Diagnostic Procedure Cardioversion Procedure Description Procedure Date Procedure Date: 09/09/2017 Procedure Start Time: 9:56 Procedure Staff Name Function Efraín Murphy MD Performing Physician Jose Raul Oh RN Tissue Coordinator Malik Farmerer RT Monitor Evangelina Melara RT Scrub Procedure Data Cath Procedure Fluoroscopy Diagnostic fluoroscopy Total fluoroscopy Time: 0 time: 0 min min Diagnostic fluoroscopy Total fluoroscopy dose: 0 dose: 0 mGy mGy Contrast Material Contrast Material Type Amount (ml) Isovue 300 0 Estimated blood loss: 0 ml Procedure Complications No complications Procedure Medications Medication Administration Route Dosage 0.9% NaCl I.V. 100 ml/hr Oxygen NC 2 l/min Versed I.V. 2 mg Fentanyl I.V. 25 mcg Hemodynamics Rest HGB: 9.6 (g/dl) Heart Rate: 73 (bpm) Snapshots Pre Cath Intra NCS Post Cath Vital Signs Time Heart Resp SPO2 etCO2 NIBP (mmHg) Rhythm Pain Sedation Rate (ipm) (%) (mmHg) Status Level (bpm) 10:02:10 87 13 97 0 154/79(126) A-Fib 0 (11) 10(A) , No pain 10:07:03 92 14 100 0 160/80(135) A-Fib 0 (11) 10(A) , No pain 10:11:56 84 13 100 0 168/88(126) A-Fib 0 (11) 9(A) , No pain 10:16:49 71 12 94 0 139/59(98) Paced 0 (11) 10(A) , No pain Medications Time Medication Route Dose Verified Delivered Reason Notes Effectiven ess by by 10:06:51 0.9% NaCl I.V. 100 Jacob Jacob Per ml/hr Tosha Givens physician RN RN 10:07:01 Oxygen NC 2 Jacob Jacob Per l/min Tosha Givens physician RN RN 10:13:10 Versed I.V. 2 mg Jacob Jacob for Lorigan Lorigan sedation RN RN 10:13:18 Fentanyl I.V. 25 Jacob Jacob for mcg Lorigan Lorigan sedation RN batch freezer operator Log Time Note 9:40:16 Jose Raul Oh RN sent for patient. Start room use. 9:56:54 Informed consent obtained and on chart 9:56:56 Admit Source: Other 9:57:23 Time tracking: Regular hours 9:57:27 Plan of Care:Hemodynamics will remain stable., Cardiac rhythm will remain stable., Comfort level will be maintained., Respiratory function will remain adequate., Patient/ family verbilizes understanding of procedure., Procedure tolerated without complication., Recovers from procedure without complications.. 9:57:34 Patient arrived from [facility] to CCL 1. Patient remains on bed/stretcher for procedure. 9:57:36 Warm blankets applied, and martin hugger turned on for patient comfort. 9:57:37 Correct patient and procedure confirmed by team. 9:57:37 ECG and BP/O2 sat monitors applied to patient. 9:57:46 H&P Date Dictated: 09/02/2017 Within 30 days and on chart.. 9:57:47 Pre-procedure instructions explained to patient. 9:57:47 Pre-op teaching completed and patient verbalized understanding. 9:57:52 Family unavailable. 9:57:53 Patient NPO since Midnight. 10:00:00 Patient allergic to Other allergySulfa, RANDEE Inhibitors, ceftaroline fosamil acetate, metronidazole, pravastatin. 10:00:30 Vital chart was started 10:00:32 Baseline sample Acquired. 10:01:01 Rhythm: atrial fibrillation 10:01:03 Full Disclosure recording started 10:01:06 Is the patient allergic to Iodine/contrast media? No. 10:01:09 Is patient on blood thinner?Yes 10:01:12 ACC The patient was administered the following blood thiners within the last 24 hours: ACCLovenox 10:01:14 Patient diabetic? Yes. 10:01:16 Previous problem with sedation/anesthesia? No ? 10:01:20 Snore? Yes 10:01:21 Sleep apnea? No 10:01:22 Deviated septum? No 10:01:23 Opens mouth fully? Yes 10:01:24 Sticks out tongue? Yes 10:01:26 Airway obstruction? No ? 10:01:30 Dentures? Yes in tight 10:01:48 [employer] insurance healthcare representative Rufino Tobias present for procedure. 10:02:07 Quick Combo opened to sterile field. 10:02:13 Quick combo pads placed on patients chest and back. 10:02:37 IV patent on arrival in right forearm with 0.9% NaCl at KVO. 10:03:28 Lab Result : BUN 37 mg/dl 10:03:28 Lab Result : Hemoglobin 9.6 g/dl 10:03:28 Lab Result : Creatinine 1.7 mg/dl 10:03:28 Lab Result : Hematocrit 30.2 % 10:06:00 Lab results completed and on chart. 10:06:51 0.9% NaCl 100 ml/hr I.V. was administered by Jacob Givens RN; Per physician; 10:07:01 Oxygen 2 l/min NC was administered by Jacob Givens RN; Per physician; 10:07:01 If diabetic: On Metformin? No 10::15 Alarms reviewed by R. N. 10::17 Sharps counted by scrub and verified by R.N. 10::18 Physician paged 10::46 Physician arrived 10::47 --------ALL STOP TIME OUT------ ::47 Final Timeout: patient, procedure, and site verified with staff and physician. All members of the team are in agreement. 10:11:54 Physical assessment completed. ASA score P 2 - A patient with mild systemic disease as per Efraín Murphy MD. 10::57 Sedation plan: IV Moderate Sedation Medication:Versed, Fentanyl 10:13: Versed 2 mg I.V. was administered by Jacob Givens RN; for sedation; ::18 Fentanyl 25 mcg I.V. was administered by Jacob Givens RN; for sedation; 10::34 Defibrillator synced and charged to 200 Joules. 10:14:36 Shock delivered. 10:15:23 Patient cardioverted to sinus rhythm , paced. 10::47 Procedure ended.(Physican Out) 10:17:06 Fluoroscopy time 00.00 minutes. 10:17:08 Fluoroscopy dose: 0 mGy 10:17:08 Flurop Dose total: 0 10:17:11 Contrast amount:Isovue 300 0ml. 10:17:12 Sharps counted by scrub and verified by R.N. 10:17:16 Post Procedure Pulses reassessed and unchanged 10:17:19 Post-procedure physical assessment completed. ASA score P 2 - A patient with mild systemic disease as per Efraín Murphy MD. 10:17:23 Post procedure rhythm: sinus rhythm , paced 10:17:32 Estimated blood loss: 0 ml 10:17:33 Post procedure instruction explained to patient.Patient verbalizes understanding. 10:17:34 Patient needs reinforcement of post procedure teaching. 10:18:04 Procedure and supply charges have been captured, reviewed, submitted and are correct. 10:18:07 Procedure Complication : No complications 10:18:09 Vital chart was stopped 10:18:10 See physician's report for complete and final results. 10:18:12 Report given to PCU. 10:18:33 Patient transfered to PCU with Stretcher. 10:18:40 End room use (Document Last) Device Usage Item Manufacture Quantity Catalog Hospital Part Current Minimal Lot# / Name Number Charge Number Stock Stock Judy tn# Code [employer] 1 [id number] Combo Signature Audit Pierce Stage Time Signature Unsigned Intra-Procedure 09/09/2017 Malik Esquivel 10:19:29 AM RT(R) Signatures Monitor : Malik Esquivel RT Signature : Date : Time : [address] [place] [address]
--- NOTE | ~2017-09-01 | EC ---
PATIENT:VINCENZO KOEHLER DATE OF SERVICE: 09/02/17 SEX: F MEDICAL RECORD: [id number] DATE OF : [birth year] LOCATION:D.M2 D.210 AGE OF PATIENT: 77 ADMISSION DATE: 09/02/17 REFERRING PHYSICIAN: INTERPRETING PHYSICIAN: MIGUELITO HELTON MD ECHOCARDIOGRAM REPORT ECHO CHARGES 7 ECHO w/CONTRAST CLINICAL DIAGNOSIS: CARDIOMYOPATHY ECHOCARDIOGRAPHIC MEASUREMENTS (adult normal given) AC root (d.<3.7cm) 3.6 cm LV Septum d (<1.2 cm> 0 cm Valve Excursion 1.0 cm LV Septum (systole) 0 cm Left Atria (s.<4.0cm> 0 cm LVPW d(<1.2cm) 0 cm RV (d.<2.3cm) 0 cm LVPW (sytole) 0 cm LV diastole(<5.6CM) 0 cm MV E-F(>70mm/sec) 0 cm LV systole 0 cm LVOT Diameter 1.7 cm MV exc.(>10mm) 0 cm Est.ejection fraction (50-75%) % Pericardial Effusion N DOPPLER: LVIT 0 cm/sec A 0 cm/sec E 0 cm/sec LA 0 cm/sec RVSP 54.1 mmHg LVOT 80.0 cm/sec AOP1/2T 0 m/s Asc. Ao 266 cm/sec RVOT 0 cm/sec RA 0 cm/sec PA 0 cm/sec AV Gradient Peak 28.4 mmHg AV Mean 15.4 mmHg AV Area 0.8 cm MV Gradient Peak 0 mmHg MV Mean 0 mmHg MV Area 0 cm COMMENTS: LIMITED ECHO WITH CONTRAST COMPLETE ECHO DONE ON 09/02/17 Wine Merchant: Xena SZYMANSKIOE Insole Taper: Tony Helton TAPE# PACS DATE OF SERVICE: 09/07/2017 Limited echocardiogram with echo contrast enhancement. The patient's overall ejection fraction is mildly reduced ejection fraction of 45% to 50%. There are no obvious regional wall motion abnormalities. There is mild inferior hypokinesis. TRANSINT:[id number] Voice Confirmation ID: [id number] DOCUMENT ID: [id number] ECHOCARDIOGRAM REPORT [id number] VINCENZO KOEHLER MIGUELITO HELTON MD at 0743 CC: [id number] DICTATION DATE: 09/07/17 1534 MANAGER BODY: 09/07/17 192 ADM IN [facility] [address] [id number]
--- NOTE | ~2017-09-01 | EC ---
PATIENT:VINCENZO KOEHLER DATE OF SERVICE: 09/02/17 SEX: F MEDICAL RECORD: [id number] DATE OF : 40 LOCATION:D.M2 D.210 AGE OF PATIENT: 77 ADMISSION DATE: 09/02/17 REFERRING PHYSICIAN: INTERPRETING PHYSICIAN: YEYO FOX MD ECHOCARDIOGRAM REPORT ECHO CHARGES 4 ECHO COMPLETE CLINICAL DIAGNOSIS: BRADYCARDIA ECHOCARDIOGRAPHIC MEASUREMENTS (adult normal given) AC root (d.<3.7cm) 3.5 cm LV Septum d (<1.2 cm> 1.2 cm Valve Excursion 1.0 cm LV Septum (systole) 2.1 cm Left Atria (s.<4.0cm> 4.4 cm LVPW d(<1.2cm) 1.2 cm RV (d.<2.3cm) 3.5 cm LVPW (sytole) 2.3 cm LV diastole(<5.6CM) 4.1 cm MV E-F(>70mm/sec) cm LV systole 1.5 cm LVOT Diameter 1.6 cm MV exc.(>10mm) cm Est.ejection fraction (50-75%) % Pericardial Effusion N DOPPLER: LVIT cm/sec A 42.0 cm/sec E 156 cm/sec LA cm/sec RVSP 67.0 mmHg LVOT 73.0 cm/sec AOP1/2T m/s Asc. Ao 259 cm/sec RVOT 53.0 cm/sec RA cm/sec PA 133 cm/sec AV Gradient Peak 27.0 mmHg AV Mean 12.0 mmHg AV Area 0.6 cm MV Gradient Peak 13.0 mmHg MV Mean 3.6 mmHg MV Area cm COMMENTS: Pipe Layer: 1 ADORE SZYMANSKIOE Ancillary Services Manager Therapy: 1 Dr. Fox TAPE# PACS DATE OF SERVICE: 09/02/2017 DATE OF SERVICE: 09/02/2017 ECHOCARDIOGRAM FINDINGS: 1. Left ventricular chamber size is within normal limits. Left ventricular systolic function is mildly reduced, overall ejection fraction estimated at 40%. 2. Left atrium is enlarged at 4.4 cm. Right atrium and right ventricle chamber ECHOCARDIOGRAM REPORT [id number] VINCENZO KOEHLER sizes are as well mildly dilated. 3. Valvular structures: Aortic valve demonstrates [id number] calcific aortic stenosis. Valve area calculates to 0.6 cm-squared and has a gradient of 27 mm across the valve. The remaining valvular structures have normal structure and motion. 4. Doppler interrogation else martinez reveals mild aortic insufficiency, moderate mitral regurgitation, moderate tricuspid regurgitation, no other valvular insufficiency or stenosis. Pulmonary systolic pressure is estimated at 67 mmHg. 5. No evidence of pericardial effusion or left ventricular thrombus. TRANSINT:[id number] Voice Confirmation ID: [id number] DOCUMENT ID: [id number] YEYO FOX MD at 1148 CC: [id number] DICTATION DATE: 09/02/17 1640 VEGETABLE TIER: 09/02/17 1852 ADM IN [facility] [address] [id number]
--- NOTE | ~2017-09-01 | HEMODYNAMI ---
PATIENT:VINCENZO KOEHLER MEDICAL RECORD: [id number] : 40 [id number] ADMISSION DATE: 09/02/17 Generatedon:09/08/201710:03 Patient name: VINCENZO KOEHLER Patient #: [id number] SSN: : 1940 Date of study: 09/08/2017 Page: Of Hemodynamic Procedure Report Patient Data Patient Demographics Procedure consent was obtained First Name: VINCENZO Gender: Female Last Name: RODO : 1940 Middle Initial: L Age: 77 year(s) Patient #: [id number] Race: Additional ID: [id number] Contact details Address: [address] [address] State: [place] City: [place] Zip code: [address] Past Medical History History of disease Date Diagnosis Comments CAD Peripheral vascular disease Cerebrovascular disease->TIA Allergies Allergen Reaction Date Comments Reported RANDEE inhibitors 09/08/2017 Sulfa drugs 09/08/2017 Other allergy 09/08/2017 Ceftaroline, Fosamil, Acetate, Pravastatin, Metronidazole Admission Admission Data Admission Date: 09/02/2017 Admission Time: 0:27 Room #: D2106 Lab Results Lab Result Date: 09/08/2017 Lab Result Time: 0:00 Biochemistry Name Units Result Min Max Creatinine mg/dl 1.7 --(----)-* 0.6 1.3 CBC Name Units Result Min Max Hematocrit % 30 *-(----)-- 42 54 Hemoglobin g/dl 9.5 *-(----)-- 13.5 17.5 Procedure Procedure Types Cath Procedure Diagnostic Procedure PPM/ICD PPM Dual Implant Procedure Description Procedure Date Procedure Date: 09/08/2017 Procedure Start Time: 9:14 Procedure End Time: 10:02 Procedure Staff Name Function Efraín Murphy MD Performing Physician Riley Ann RT Monitor Iain Pardo RN Nurse Elyse Quinn RT Scrub Procedure Data Cath Procedure Fluoroscopy Diagnostic fluoroscopy Total fluoroscopy Time: 6.3 time: 6.3 min min Diagnostic fluoroscopy Total fluoroscopy dose: dose: 105.28 mGy 105.28 mGy Contrast Material Contrast Material Type Amount (ml) Visipaque 270 10 Estimated blood loss: 20 ml Procedure Medications Medication Administration Route Dosage Ancef (1Gm/50ml NS) I.V.P.B 1 g Ancef Irrigation Topical 1 g (1gm/500ml NS) Lidocaine 1% added to field 20 0.9% NaCl I.V. 25 ml/hr Versed I.V. 1 mg Fentanyl I.V. 25 mcg Versed I.V. 1 mg Fentanyl I.V. 25 mcg Versed I.V. 1 mg Amiodarone Loading I.V. drip 150 mg Dose (150mg/100ml D5W) Hemodynamics Rest HGB: 9.5 (g/dl) Pre Cath Intra NCS Post Cath Vital Signs Time Heart Resp SPO2 etCO2 NIBP (mmHg) Rhythm Pain Sedation Rate (ipm) (%) (mmHg) Status Level (bpm) 8:50:53 98 14 94 0 169/97(130) NSR 0 (11) 10(A) , No pain 8:55:34 88 21 93 37 152/90(125) NSR 0 (11) 10(A) , No pain 9:00:08 104 36 95 38.5 164/88(118) NSR 0 (11) 10(A) , No pain 9:04:43 96 16 91 41.5 132/75(101) NSR 0 (11) 10(A) , No pain 9:09:11 97 12 95 28.6 125/68(101) NSR 0 (11) 10(A) , No pain 9:13:36 101 13 94 27.9 131/77(97) NSR 0 (11) 10(A) , No pain 9:18:04 99 20 96 32.4 131/74(97) NSR 0 (11) 9(A) , No pain 9:22:34 111 11 92 36.9 114/64(92) NSR 0 (11) 9(A) , No pain 9:28:04 106 15 93 18.8 114/61(96) NSR 0 (11) 9(A) , No pain 9:32:22 93 19 96 24.1 104/66(84) NSR 0 (11) 10(A) , No pain 9:36:42 108 10 96 27.9 108/66(86) NSR 0 (11) 10(A) , No pain 9:41:04 97 12 97 27.9 118/71(99) NSR 0 (11) 10(A) , No pain 9:45:28 84 15 98 27.9 137/79(124) NSR 0 (11) 10(A) , No pain 9:49:55 101 15 98 28.7 127/84(109) NSR 0 (11) 10(A) , No pain 9:54:21 101 12 100 31.7 148/81(125) NSR 0 (11) 10(A) , No pain 9:58:56 83 14 100 36.9 145/83(120) NSR 0 (11) 10(A) , No pain Medications Time Medication Route Dose Verified Delivered Reason Notes Effectiv eness by by 9:04:08 Ancef I.V.P.B 1 g Efraín Buffie used for (1Gm/50ml Katherine Pardo air and missile defense crewmember NS) 9:04:17 Ancef Topical 1 g Efraín Buffie used for Irrigation Katelynred Char air and missile defense crewmember (1gm/500ml NS) 9:08:04 Lidocaine 1% added 20ml Efraín Efraín for local to vial Katherine Murphy MD anesthetic field x 2 9:08:20 0.9% NaCl I.V. 25 Efraín Buffie Per ml/hr Katherine Pardo RN physician 9:10:39 Versed I.V. 1 mg Efraín Buffie for Katherine Pardo RN sedation 9:10:45 Fentanyl I.V. 25 Efraín Buffie for mcg Katherine Pardo RN sedation 9:20:02 Versed I.V. 1 mg Efraín Buffie for Katherine Pardo RN sedation 9:20:07 Fentanyl I.V. 25 Efraín Buffie for mcg Katherine Pardo RN sedation 9:28:22 Versed I.V. 1 mg Efraín Buffie for Katherine Pardo RN sedation 9:52:54 Amiodarone I.V. 150 Efraín Buffie Per Loading Dose drip mg Katherine Pardo RN physician (150mg/100ml D5W) Procedure Log Time Note 8:27:58 Riley Ann RT(R) (CV) sent for patient. Start room use. 8:27:59 Time tracking: Regular hours 8:28:03 Plan of Care:Hemodynamics will remain stable., Cardiac rhythm will remain stable., Comfort level will be maintained., Respiratory function will remain adequate., Patient/ family verbilizes understanding of procedure., Procedure tolerated without complication., Recovers from procedure without complications.. 8:49:17 Patient received from PCU to CCL 3 Alert and oriented. Tansferred to table in Supine position. 8:49:18 Warm blankets applied, and martin hugger turned on for patient comfort. 8:49:18 Correct patient and procedure confirmed by team. 8:49:19 Signed procedure consent form obtained from patient. 8:49:20 ECG and BP/O2 sat monitors applied to patient. 8:49:21 Vital chart was started 8:49:30 Rhythm: sinus rhythm 8:50:11 IV Extension Set opened to sterile field. 8:50:49 IV started by Iain Pardo RN inLeft upper arm with a 20 gauge IV catheter with 0.9% NaCl at KVO. 8:51:05 Full Disclosure recording started 8:51:23 H&P Date Dictated: 09/06/2017 Within 30 days and on chart.. 8:51:24 Pre-procedure instructions explained to patient. 8:51:25 Pre-op teaching completed and patient verbalized understanding. 8:51:27 Family in patients room. 8:51:28 Patient NPO since Midnight. 8:51:34 Patient allergic to RANDEE inhibitors 8:51:38 Patient allergic to Sulfa drugs 8:52:32 Patient allergic to Other allergyCeftaroline, Fosamil, Acetate, Pravastatin, Metronidazole 8:52:34 Is the patient allergic to Iodine/contrast media? No. 8:52:39 Is patient on blood thinner?Yes 8:53:02 Eliquis last dose 09-06-17 8:53:08 Patient diabetic? No. 8:53:11 Previous problem with sedation/anesthesia? No ? 9:00:44 Snore? Yes 9:02:05 Sleep apnea? No 9:02:07 Deviated septum? No 9:02:08 Opens mouth fully? Yes 9:02:10 Sticks out tongue? Yes 9:02:19 Airway obstruction? Yes ASTHMA 9:02:28 Dentures? Yes IN AND OUT 9:02:35 Patient pain scale 0/10 ?. 9:04:08 Ancef (1Gm/50ml NS) 1 g I.V.P.B was administered by Iain Pardo RN; used for procedure; 9:04:17 Ancef Irrigation (1gm/500ml NS) 1 g Topical was administered by Iain Pardo RN; used for procedure; 9:: Lab Result : Creatinine 1.7 mg/dl 9:: Lab Result : Hematocrit 30 % 9:: Lab Result : Hemoglobin 9.5 g/dl 9:04:31 Lab results completed and on chart. 9:04:40 Left chest area was prepped with chlora-prep and draped in sterile fashion 9::43 Alarms reviewed by R. N. 9::43 Sharps counted by scrub and verified by R.N. 9:05:59 Medtronic 5076-45 PPM Lead opened to sterile field. 9:06:00 Medtronic 4074-52 PPM Lead opened to sterile field. 9:06:01 Medtronic Advisa MRI PPM Dual Generator [id number] opened to sterile field. 9:07:36 PEELAWAY 7FR Safe Sheath (SU7) opened to sterile field. 9:07:37 PEELAWAY 7FR Safe Sheath (SU7) opened to sterile field. 9:07:53 Cautery Tip Oil Burner opened to sterile field. 9:08:01 Stapler Skin 35W Proximate Plus (PMW35) opened to sterile field. 9:08:04 Lidocaine 1% 20ml vial x 2 added to field was administered by Efraín Murphy MD; for local anesthetic; 9:08:20 0.9% NaCl 25 ml/hr I.V. was administered by Iain Pardo RN; Per physician; 9:09:12 MICROPUNCTURE 4FR Anjel ([id number]) opened to sterile field. 9:09:14 MICROPUNCTURE 4FR Cook ([id number]) opened to sterile field. 9::26 Physician arrived 9::28 --------ALL STOP TIME OUT------ 9::29 Final Timeout: patient, procedure, and site verified with staff and physician. All members of the team are in agreement. 9:09:33 Left chest site verified by team. 9:09:36 Physical assessment completed. ASA score P 2 - A patient with mild systemic disease as per Efraín Murphy MD. 9:09:40 Sedation plan: IV Moderate Sedation Medication:Versed, Fentanyl 9:10:39 Versed 1 mg I.V. was administered by Iain Pardo RN; for sedation; 9:10:45 Fentanyl 25 mcg I.V. was administered by Iain Pardo RN; for sedation; 9:11:49 Use device set NORRED PPM 9:13:00 2.0 Silk 685H opened to sterile field. 9:13:01 2-0 Vicryl Plus [id number] opened to sterile field. 9:13:05 Procedure started. 9:13:15 Medtronic sales representative consultant CECELIA TAPIA present for procedure. 9:13:41 Pre sharps counted by scrub and verified by RN: Sutures: 2; Sponges: 5; Stick needles: 2; Skin needles: 4; Blade: 1; Cautery: 1 9:13:46 Grounding pad site Right thigh. 9:14:00 Lidocaine 1% was administered to left subclavicular area by Efraín Murphy MD . 9:14:39 IV Extension Set opened to sterile field. 9:17:00 Incision made to left subclavicular area. 9:18:38 Generator pocket made/opened. 9:20:02 Versed 1 mg I.V. was administered by Iain Pardo RN; for sedation; 9:20:07 Fentanyl 25 mcg I.V. was administered by Iain Pardo RN; for sedation; 9:23:42 Access obtained with 4Fr micropunture. 9:24:40 Access obtained with 4Fr micropunture. 9:25:19 Left subclavian vein accessed with 7Fr Peel Away Sheath. 9:26:24 Ventricular lead inserted and advanced. 9:26:30 Peel-a-way sheath was split and removed. 9:27:12 Atrial lead inserted and advanced. 9:27:39 Peel-a-way sheath was split and removed. 9:28:22 Versed 1 mg I.V. was administered by Iain Pardo RN; for sedation; 9:33:15 Ventricular lead positioned. 9:34:11 Ventricular lead tested. 9:38:01 Atrial lead positioned. 9:38:39 Atrial lead tested. 9:40:48 PPM Dual was attached to lead(s) and inserted into pocket. 9::43 Generator was sutured in place with 2-0 ticron. 9::55 Device pocket was irrigated with Ancef. 9:43:49 Subcutaneous closure was completed with 2-0 vicryl. 9:43:55 Skin closure was completed with 35mm Sergei. 9:45:30 Procedure ended.(Physican Out) 9:45:49 Fluoroscopy time 06.30 minutes. 9::55 Fluoroscopy dose: 105.28 mGy 9:45:55 Flurop Dose total: 105.28 9:46:01 Contrast amount:Visipaque 270 10ml. 9:46:57 Insertion/operative site no bleeding no hematoma. 9:47:09 Post-op/insertion site Left Subclavian vein dressed using a gauze eyepad and tegaderm. 9:47:18 Post left subclavian vein:stable 9:47:34 Post-procedure physical assessment completed. ASA score P 2 - A patient with mild systemic disease as per Efraín Murphy MD. 9:47:41 Post procedure rhythm: paced 9:47:47 Estimated blood loss: 20 ml 9:47:51 Post procedure instruction explained to patient.Patient verbalizes understanding. 9:47:53 Patient needs reinforcement of post procedure teaching. 9:47:55 Procedure and supply charges have been captured, reviewed, submitted and are correct. 9:52:54 Amiodarone Loading Dose (150mg/100ml D5W) 150 mg I.V. drip was administered by Iain Pardo RN; Per physician; 10:02:16 Vital chart was stopped 10:02:17 See physician's report for complete and final results. 10:02:22 Report given to Med II. 10:02:32 Patient transfered to Med II with Bed. 10:02:35 Procedure ended. 10:02:35 Full Disclosure recording stopped 10:02:39 End room use (Document Last) Device Usage Item Name Manufacture Quantity Catalog Hospital Part Current Minimal Lot# / Number Charge Number Stock Stock Serial# Code IV Extension Hospira 2 37225-96 [id number] [id number] 5 Set Medtronic Medtronic 1 5076-45 354959 666948 5 5076-45 PPM Lead Medtronic Medtronic 1 4074-52 172858 206277 5 4074-52 PPM Lead Medtronic Medtronic 1 A2DR01 [id number] 144634 5 Advisa MRI PPM Dual Generator A2DR01 PEELAWAY 7FR Microtek 2 SU7 [id number] [id number] [id number] 10 Safe [employer] (SU7) Cautery Tip Microtek 1 [id number] [id number] 127596 678913 5 Oil Burner [employer] Stapler Skin Unknown 1 PMW35 [id number] [id number] 501296 5 35W Proximate Plus (PMW35) MICROPUNCTURE Cook [employer] 2 [id number] 344039 260466 5 4FR Cook ([id number]) 2.0 Silk 685H Ethicon 1 685H [id number] 89176 216419 5 2-0 Vicryl Ethicon 1 [id number] [id number] 220201 034042 5 Plus [id number] Signature Audit [place] Stage Time Signature Unsigned Intra-Procedure 09/08/2017 Riley Ann 10:03:05 AM RT(R) (CV) Signatures Monitor : Riley Ann RT Signature : Date : Time : [id number] [place] [address]
[2017-09-01 23:18] LABS: BASOPHILS 0.2 % (0-2); EOSINOPHILS 1.1 % (0-7); HEMATOCRIT 30.5 % (36.0-48.0); HEMOGLOBIN 9.5 g/dL (12-16); IMMATURE GRANULOCYTES 0.4 % (0-5); LYMPHOCYTES 30.4 % (15-50); MCH 30.6 pg (26.0-34.0); MCHC 31.1 g/dL (31.0-37.0); MCV 98.4 fL (80.0-100.0); MEAN PLATELET VOLUME 11.1 fL (7.4-10.4); MONOCYTES 9.8 % (2-11); NEUTROPHILS 58.1 % (40-80); PLATELET COUNT 189 10x3/uL (130-400); RDW 14.2 % (11.5-14.5); WBC 9.8 10x3/uL (4.8-10.8)
[2017-09-01 23:34] LABS: ALBUMIN 3.4 g/dL (3.4-5.0); ALKALINE PHOSPHATASE 67 U/L (46-116); ALT (SGPT) 35 U/L (10-68); CALC OSMOLALITY 294 mosm/kg (275-300); CALCIUM 8.6 mg/dL (8.5-10.1); CARBON DIOXIDE 34.3 mmol/L (21.0-32.0); CHLORIDE - SERUM 97 mmol/L (98-107); CREATININE - SERUM 3.9 mg/dL (0.6-1.3); GLUCOSE 94 mg/dL (74-106); POTASSIUM - SERUM 5.4 mmol/L (3.5-5.1); PROTEIN - SERUM 6.7 g/dL (6.4-8.2); SODIUM 136 mmol/L (136-145); UREA NITROGEN 76 mg/dL (7-18); eGFR NON AFRICAN AMERICAN 12 mL/min (90-120)
[2017-09-01 23:37] LABS: APTT 35.9 SECONDS (22.8-39.4); INR 1.48 (0.85-1.17); PROTIME 17.4 SECONDS (11.6-15.0)
[2017-09-01 23:38] LABS: D-DIMER-QUANTITATIVE 0.82 ug/mLFEU (0.20-0.54)
[2017-09-01 23:46] LABS: CKMB 1.1 U/L (0.0-3.6); CREATINE KINASE 87 UL (21-215); PRO BNP 9586 pg/mL (0-450); TROPONIN-I < 0.017 ng/mL (0.000-0.060)
[2017-09-02 02:37] LABS: TROPONIN-I 0.021 ng/mL (0.000-0.060)
[2017-09-02 06:49] LABS: BASOPHILS 0.2 % (0-2); EOSINOPHILS 0.9 % (0-7); HEMATOCRIT 30.1 % (36.0-48.0); HEMOGLOBIN 9.2 g/dL (12-16); IMMATURE GRANULOCYTES 0.5 % (0-5); LYMPHOCYTES 21.4 % (15-50); MCH 30.4 pg (26.0-34.0); MCHC 30.6 g/dL (31.0-37.0); MCV 99.3 fL (80.0-100.0); MEAN PLATELET VOLUME 10.8 fL (7.4-10.4); MONOCYTES 10.4 % (2-11); NEUTROPHILS 66.6 % (40-80); PLATELET COUNT 185 10x3/uL (130-400); RBC 3.03 10x6/uL (4.00-5.40); RDW 14.2 % (11.5-14.5)
[2017-09-02 07:02] LABS: WBC 12.6 10x3/uL (4.8-10.8)
[2017-09-02 07:09] LABS: APPEARANCE CLEAR (CLEAR); BILIRUBIN NEGATIVE (NEGATIVE); COLOR YELLOW (YELLOW); GLUCOSE NEGATIVE (NEGATIVE); KETONE NEGATIVE (NEGATIVE); NITRITE NEGATIVE (NEGATIVE); PROTEIN NEGATIVE (NEGATIVE); SPECIFIC GRAVITY 1.015 (1.005-1.020); UROBILINOGEN NORMAL (NORMAL)
[2017-09-02 07:36] LABS: ALBUMIN 3.4 g/dL (3.4-5.0); ALKALINE PHOSPHATASE 66 U/L (46-116); ALT (SGPT) 31 U/L (10-68); CALC OSMOLALITY 294 mosm/kg (275-300); CALCIUM 8.4 mg/dL (8.5-10.1); CARBON DIOXIDE 34.9 mmol/L (21.0-32.0); CHLORIDE - SERUM 98 mmol/L (98-107); CREATINE KINASE 86 UL (21-215); CREATININE - SERUM 4.1 mg/dL (0.6-1.3); POTASSIUM - SERUM 5.9 mmol/L (3.5-5.1); PROTEIN - SERUM 6.7 g/dL (6.4-8.2); SODIUM 137 mmol/L (136-145); TROPONIN-I 0.022 ng/mL (0.000-0.060); UREA NITROGEN 78 mg/dL (7-18); eGFR NON AFRICAN AMERICAN 11 mL/min (90-120)
[2017-09-02 07:42] LABS: GLUCOSE 62 mg/dL (74-106)
[2017-09-02 13:06] LABS: CKMB 1.2 U/L (0.0-3.6); CREATINE KINASE 91 UL (21-215); TROPONIN-I < 0.017 ng/mL (0.000-0.060)
[2017-09-02] MEDS ORDERED: LEVOTHYROXINE50 MCG PO (19:20)
[2017-09-03 04:32] LABS: BASOPHILS 0.3 % (0-2); EOSINOPHILS 2.4 % (0-7); HEMATOCRIT 28.8 % (36.0-48.0); HEMOGLOBIN 8.9 g/dL (12-16); IMMATURE GRANULOCYTES 0.3 % (0-5); LYMPHOCYTES 36.5 % (15-50); MCH 30.7 pg (26.0-34.0); MCHC 30.9 g/dL (31.0-37.0); MCV 99.3 fL (80.0-100.0); MEAN PLATELET VOLUME 10.7 fL (7.4-10.4); MONOCYTES 11.5 % (2-11); PLATELET COUNT 169 10x3/uL (130-400); RDW 14.1 % (11.5-14.5)
[2017-09-03 04:44] LABS: WBC 7.2 10x3/uL (4.8-10.8)
[2017-09-03 04:49] LABS: ANION GAP 9.2 mmol/L (8-16); CALCIUM 8.3 mg/dL (8.5-10.1); CARBON DIOXIDE 34.3 mmol/L (21.0-32.0); CREATININE - SERUM 3.9 mg/dL (0.6-1.3); MAGNESIUM - SERUM 2.1 mg/dL (1.8-2.4); PHOSPHOROUS 6.2 mg/dL (2.5-4.9); POTASSIUM - SERUM 4.5 mmol/L (3.5-5.1)
[2017-09-03 06:12] VITALS: BP 126/79
[2017-09-03 08:38] VITALS: BP 125/44
[2017-09-03 12:30] VITALS: BP 151/44
[2017-09-03 12:33] VITALS: BMI 33.3
[2017-09-03 20:00] VITALS: BP 179/53; BP 86/35
[2017-09-04 04:00] VITALS: BP 131/86
[2017-09-04 05:14] LABS: ANION GAP 9.7 mmol/L (8-16); CALCIUM 8.2 mg/dL (8.5-10.1); CARBON DIOXIDE 34.5 mmol/L (21.0-32.0); MAGNESIUM - SERUM 2.3 mg/dL (1.8-2.4); POTASSIUM - SERUM 4.2 mmol/L (3.5-5.1)
[2017-09-04 05:18] LABS: BASOPHILS 0.3 % (0-2); EOSINOPHILS 2.1 % (0-7); HEMATOCRIT 30.3 % (36.0-48.0); HEMOGLOBIN 9.6 g/dL (12-16); IMMATURE GRANULOCYTES 0.3 % (0-5); LYMPHOCYTES 20.1 % (15-50); MCH 30.7 pg (26.0-34.0); MCHC 31.7 g/dL (31.0-37.0); MCV 96.8 fL (80.0-100.0); MEAN PLATELET VOLUME 11.6 fL (7.4-10.4); MONOCYTES 11.3 % (2-11); NEUTROPHILS 65.9 % (40-80); PLATELET COUNT 185 10x3/uL (130-400); RBC 3.13 10x6/uL (4.00-5.40); RDW 13.7 % (11.5-14.5); WBC 8.8 10x3/uL (4.8-10.8)
[2017-09-04 05:25] LABS: CREATININE - SERUM 2.7 mg/dL (0.6-1.3); PHOSPHOROUS 4.4 mg/dL (2.5-4.9)
[2017-09-04 08:48] VITALS: BP 145/60
[2017-09-04 11:46] VITALS: BP 161/51
[2017-09-04 16:35] VITALS: BP 155/55
[2017-09-04 20:42] VITALS: BP 136/45
[2017-09-05 01:43] VITALS: BP 163/53
[2017-09-05 04:00] LABS: BASOPHILS 0.2 % (0-2); EOSINOPHILS 2.2 % (0-7); HEMATOCRIT 27.9 % (36.0-48.0); HEMOGLOBIN 8.8 g/dL (12-16); IMMATURE GRANULOCYTES 0.2 % (0-5); LYMPHOCYTES 21.2 % (15-50); MCH 30.3 pg (26.0-34.0); MCHC 31.5 g/dL (31.0-37.0); MCV 96.2 fL (80.0-100.0); MEAN PLATELET VOLUME 11.4 fL (7.4-10.4); MONOCYTES 12.6 % (2-11); NEUTROPHILS 63.6 % (40-80); PLATELET COUNT 169 10x3/uL (130-400); RDW 13.8 % (11.5-14.5); WBC 8.8 10x3/uL (4.8-10.8)
[2017-09-05 04:06] LABS: ANION GAP 7.4 mmol/L (8-16); CALCIUM 8.5 mg/dL (8.5-10.1); CARBON DIOXIDE 33.5 mmol/L (21.0-32.0); MAGNESIUM - SERUM 1.9 mg/dL (1.8-2.4); POTASSIUM - SERUM 3.9 mmol/L (3.5-5.1)
[2017-09-05 04:07] LABS: PHOSPHOROUS 3.1 mg/dL (2.5-4.9)
[2017-09-05 05:10] VITALS: BP 151/64
[2017-09-05 08:16] VITALS: BP 91/34
[2017-09-05 11:18] VITALS: BP 138/66
[2017-09-05 15:33] VITALS: BP 123/58
[2017-09-05 22:15] VITALS: BP 121/63
[2017-09-06 01:30] VITALS: BP 127/73
[2017-09-06 06:20] VITALS: BP 156/79
[2017-09-06 06:25] LABS: BASOPHILS 0.3 % (0-2); EOSINOPHILS 3.5 % (0-7); HEMATOCRIT 31.8 % (36.0-48.0); IMMATURE GRANULOCYTES 0.1 % (0-5); LYMPHOCYTES 28.2 % (15-50); MCH 30.6 pg (26.0-34.0); MCHC 31.4 g/dL (31.0-37.0); MCV 97.2 fL (80.0-100.0); MEAN PLATELET VOLUME 11.1 fL (7.4-10.4); MONOCYTES 11.5 % (2-11); NEUTROPHILS 56.4 % (40-80); PLATELET COUNT 176 10x3/uL (130-400); RBC 3.27 10x6/uL (4.00-5.40); RDW 13.5 % (11.5-14.5); WBC 7.4 10x3/uL (4.8-10.8)
[2017-09-06 06:48] LABS: ANION GAP 8.7 mmol/L (8-16); CALCIUM 8.8 mg/dL (8.5-10.1); CARBON DIOXIDE 34.1 mmol/L (21.0-32.0); CREATININE - SERUM 1.7 mg/dL (0.6-1.3); MAGNESIUM - SERUM 1.8 mg/dL (1.8-2.4); PHOSPHOROUS 3.8 mg/dL (2.5-4.9); POTASSIUM - SERUM 3.8 mmol/L (3.5-5.1)
[2017-09-06 08:33] VITALS: BP 157/75
[2017-09-06 12:06] VITALS: BP 120/72
[2017-09-06 15:33] VITALS: BMI 33.3
[2017-09-06 16:29] VITALS: BP 130/82
[2017-09-06 20:00] VITALS: BP 124/67
[2017-09-07 04:00] VITALS: BP 125/60
[2017-09-07 05:06] LABS: BASOPHILS 0.4 % (0-2); EOSINOPHILS 3.2 % (0-7); HEMATOCRIT 32.1 % (36.0-48.0); HEMOGLOBIN 10.2 g/dL (12-16); IMMATURE GRANULOCYTES 0.1 % (0-5); LYMPHOCYTES 28.1 % (15-50); MCH 30.4 pg (26.0-34.0); MCHC 31.8 g/dL (31.0-37.0); MCV 95.5 fL (80.0-100.0); MEAN PLATELET VOLUME 11.2 fL (7.4-10.4); NEUTROPHILS 57.2 % (40-80); PLATELET COUNT 194 10x3/uL (130-400); RBC 3.36 10x6/uL (4.00-5.40); RDW 13.3 % (11.5-14.5); WBC 8.2 10x3/uL (4.8-10.8)
[2017-09-07 05:35] LABS: ANION GAP 10.5 mmol/L (8-16); CALCIUM 9.1 mg/dL (8.5-10.1); CARBON DIOXIDE 32.4 mmol/L (21.0-32.0); CREATININE - SERUM 1.6 mg/dL (0.6-1.3); MAGNESIUM - SERUM 1.5 mg/dL (1.8-2.4); POTASSIUM - SERUM 3.9 mmol/L (3.5-5.1)
[2017-09-07 08:25] VITALS: BP 170/91
[2017-09-07 11:47] VITALS: BP 131/66
[2017-09-07 12:59] LABS: % SATURATION 10 % (15-55); IRON 26 ug/dl (35-150); TOTAL IRON BIND CAPACITY 237 ug/dl (260-445); UNSAT IRON BIND CAPACITY 211 ug/dl (150-375)
[2017-09-07 13:13] LABS: T4 THYROXIN - FREE 1.23 ng/dL (0.76-1.46); THYROID STIMULATING HORMONE 3.21 uIU/mL (0.36-3.74)
[2017-09-07 15:54] VITALS: BP 120/79
[2017-09-07 17:30] VITALS: BP 130/63
[2017-09-07 21:15] VITALS: BP 130/63
[2017-09-08 04:00] VITALS: BP 134/57
[2017-09-08 05:47] LABS: BASOPHILS 0.9 % (0-2); EOSINOPHILS 4.9 % (0-7); HEMOGLOBIN 9.5 g/dL (12-16); IMMATURE GRANULOCYTES 0.2 % (0-5); LYMPHOCYTES 38.9 % (15-50); MCH 30.3 pg (26.0-34.0); MCHC 31.7 g/dL (31.0-37.0); MCV 95.5 fL (80.0-100.0); MEAN PLATELET VOLUME 11.1 fL (7.4-10.4); MONOCYTES 12.1 % (2-11); PLATELET COUNT 185 10x3/uL (130-400); RBC 3.14 10x6/uL (4.00-5.40); RDW 13.4 % (11.5-14.5)
[2017-09-08 05:53] LABS: WBC 5.9 10x3/uL (4.8-10.8)
[2017-09-08 06:14] LABS: ANION GAP 11.9 mmol/L (8-16); CARBON DIOXIDE 30.6 mmol/L (21.0-32.0); CREATININE - SERUM 1.7 mg/dL (0.6-1.3); MAGNESIUM - SERUM 1.6 mg/dL (1.8-2.4); POTASSIUM - SERUM 3.5 mmol/L (3.5-5.1)
[2017-09-08 08:19] LABS: FOLATE (FOLIC ACID) - SERUM 19.6 ng/mL (>3.0)
[2017-09-08 08:46] VITALS: BP 137/76
[2017-09-08 11:53] VITALS: BP 145/68
[2017-09-08 15:59] VITALS: BP 119/52
[2017-09-08 20:56] VITALS: BP 100/52
[2017-09-09] VITALS (7 sets, daily range): BP systolic 107–176; BP diastolic 46–96
[2017-09-09 05:40] LABS: BASOPHILS 0.5 % (0-2); EOSINOPHILS 3.9 % (0-7); HEMATOCRIT 30.2 % (36.0-48.0); HEMOGLOBIN 9.6 g/dL (12-16); IMMATURE GRANULOCYTES 0.5 % (0-5); MCH 30.5 pg (26.0-34.0); MCHC 31.8 g/dL (31.0-37.0); MCV 95.9 fL (80.0-100.0); MEAN PLATELET VOLUME 11.2 fL (7.4-10.4); MONOCYTES 9.6 % (2-11); NEUTROPHILS 49.5 % (40-80); PLATELET COUNT 191 10x3/uL (130-400); RBC 3.15 10x6/uL (4.00-5.40); RDW 13.7 % (11.5-14.5); WBC 6.7 10x3/uL (4.8-10.8)
[2017-09-09 06:03] LABS: ANION GAP 12.8 mmol/L (8-16); CALCIUM 7.7 mg/dL (8.5-10.1); CARBON DIOXIDE 28.8 mmol/L (21.0-32.0); CREATININE - SERUM 1.7 mg/dL (0.6-1.3); MAGNESIUM - SERUM 1.7 mg/dL (1.8-2.4); POTASSIUM - SERUM 3.6 mmol/L (3.5-5.1)
[2017-09-10 00:29] VITALS: BP 137/58
[2017-09-10 04:29] VITALS: BP 148/56
[2017-09-10 05:41] LABS: BASOPHILS 0.9 % (0-2); EOSINOPHILS 4.6 % (0-7); HEMOGLOBIN 9.5 g/dL (12-16); IMMATURE GRANULOCYTES 0.6 % (0-5); LYMPHOCYTES 33.2 % (15-50); MCH 30.4 pg (26.0-34.0); MCHC 31.7 g/dL (31.0-37.0); MCV 96.2 fL (80.0-100.0); MONOCYTES 11.4 % (2-11); NEUTROPHILS 49.3 % (40-80); PLATELET COUNT 179 10x3/uL (130-400); RBC 3.12 10x6/uL (4.00-5.40); RDW 13.7 % (11.5-14.5); WBC 6.9 10x3/uL (4.8-10.8)
[2017-09-10 06:07] LABS: ANION GAP 9.1 mmol/L (8-16); CALCIUM 8.4 mg/dL (8.5-10.1); CARBON DIOXIDE 31.8 mmol/L (21.0-32.0); CREATININE - SERUM 1.7 mg/dL (0.6-1.3); MAGNESIUM - SERUM 1.5 mg/dL (1.8-2.4); POTASSIUM - SERUM 3.9 mmol/L (3.5-5.1)
[2017-09-10 07:55] VITALS: BP 136/95
[2017-09-10 12:10] VITALS: BP 136/49
[2017-09-10 14:59] VITALS: BP 128/53
[2017-09-10 20:59] VITALS: BP 148/54
[2017-09-11 00:36] VITALS: BP 149/54
[2017-09-11 04:51] LABS: BASOPHILS 0.7 % (0-2); EOSINOPHILS 3.5 % (0-7); HEMATOCRIT 29.8 % (36.0-48.0); HEMOGLOBIN 9.5 g/dL (12-16); IMMATURE GRANULOCYTES 0.7 % (0-5); LYMPHOCYTES 28.1 % (15-50); MCH 30.6 pg (26.0-34.0); MCHC 31.9 g/dL (31.0-37.0); MCV 96.1 fL (80.0-100.0); MONOCYTES 9.2 % (2-11); NEUTROPHILS 57.8 % (40-80); PLATELET COUNT 202 10x3/uL (130-400); RDW 13.5 % (11.5-14.5); WBC 7.6 10x3/uL (4.8-10.8)
[2017-09-11 05:05] LABS: ANION GAP 9.7 mmol/L (8-16); CALCIUM 8.3 mg/dL (8.5-10.1); CARBON DIOXIDE 30.3 mmol/L (21.0-32.0); CREATININE - SERUM 1.6 mg/dL (0.6-1.3)
[2017-09-11 05:17] VITALS: BP 166/68
[2017-09-11 08:39] VITALS: BP 141/48
== END 2017-09-11 13:56 | disposition home health service (06) | DRG 242 ==
LOC: D.ER 22:04 → D.EDHOLD 09-02 00:27 → D.M2 09-02 00:27
PROVIDERS: Emergency Medicine; Family Medicine; Internal Medicine Cardiovascular Disease; Internal Medicine Nephrology
PROC: 02HL3JZ Insertion of Pacemaker Lead into Left Ventricle, Percutaneous Approach (ICD-10-PCS; 2017-09-08)
PROC: 02H63JZ Insertion of Pacemaker Lead into Right Atrium, Percutaneous Approach (ICD-10-PCS; 2017-09-08)
PROC: 0JH606Z Insertion of Pacemaker, Dual Chamber into Chest Subcutaneous Tissue and Fascia, Open Approach (ICD-10-PCS; principal; 2017-09-08 08:27)
PROC: 5A2204Z Restoration of Cardiac Rhythm, Single (ICD-10-PCS; 2017-09-09)
DX: I49.5 Sick sinus syndrome (principal); I50.23 Acute on chronic systolic (congestive) heart failure; N17.9 Acute kidney failure, unspecified; I13.0 Hypertensive heart and chronic kidney disease with heart failure and stage 1 through stage 4 chronic kidney disease, or unspecified chronic kidney disease; R00.1 Bradycardia, unspecified; N18.9 Chronic kidney disease, unspecified; E11.21 Type 2 diabetes mellitus with diabetic nephropathy; I25.10 Atherosclerotic heart disease of native coronary artery without angina pectoris; I48.91 Unspecified atrial fibrillation; E87.5 Hyperkalemia

== ENCOUNTER 2017-10-02 17:15 | Emergency (ER) | payer MEDICARE, BC, MEDICAID ==
[~2017-10-02 17:15] MED LIST changes: +LEVOTHYROXINE50 MCG PO
[2017-10-02 17:45] LABS: BASOPHILS 0.3 % (0-2); EOSINOPHILS 1.7 % (0-7); HEMATOCRIT 32.5 % (36.0-48.0); HEMOGLOBIN 10.1 g/dL (12-16); IMMATURE GRANULOCYTES 0.2 % (0-5); LYMPHOCYTES 28.9 % (15-50); MCHC 31.1 g/dL (31.0-37.0); MCV 96.4 fL (80.0-100.0); MEAN PLATELET VOLUME 10.9 fL (7.4-10.4); MONOCYTES 11.4 % (2-11); NEUTROPHILS 57.5 % (40-80); PLATELET COUNT 176 10x3/uL (130-400); RBC 3.37 10x6/uL (4.00-5.40); RDW 13.5 % (11.5-14.5); WBC 9.2 10x3/uL (4.8-10.8)
[2017-10-02 18:00] LABS: ALBUMIN 3.5 g/dL (3.4-5.0); ANION GAP 3.8 mmol/L (8-16); BILIRUBIN - TOTAL 0.29 mg/dL (0.2-1.3); CALCIUM 8.6 mg/dL (8.5-10.1); CARBON DIOXIDE 32.3 mmol/L (21.0-32.0); POTASSIUM - SERUM 4.1 mmol/L (3.5-5.1); PROTEIN - SERUM 7.4 g/dL (6.4-8.2)
== END 2017-10-02 19:46 | disposition home or self-care (01) ==
LOC: D.ER 17:15
PROVIDERS: Family Medicine
DX: M79.662 Pain in left lower leg (principal)

== ENCOUNTER → 2018-05-18 09:41 | Outpatient (CLI) | payer MEDICARE, BC, MEDICAID | END | disposition home or self-care (01) | LOC: D.RT 09:41 | DX: R91.8 Other nonspecific abnormal finding of lung field (principal); J44.9 Chronic obstructive pulmonary disease, unspecified ==

== ENCOUNTER 2018-07-02 12:12 | Outpatient (CLI) | payer MEDICARE, BC, MEDICAID ==
[~2018-07-02] VITALS: Ht 167.6 cm; Wt 86.4 kg
[2018-07-02 14:23] VITALS: BP 154/70; Ht 167.6 cm; Wt 86.4 kg
== END 2018-07-02 16:53 | disposition home or self-care (01) ==
LOC: D.OPS 12:12
DX: D64.9 Anemia, unspecified (principal); Z01.812 Encounter for preprocedural laboratory examination

== ENCOUNTER 2018-09-06 19:06 | Inpatient (IN) | payer MEDICARE, BC, MEDICAID ==
[~2018-09-06] VITALS: Ht 167.6 cm; Wt 83.9 kg
[2018-09-06 20:21] LABS: APPEARANCE CLEAR (CLEAR); BILIRUBIN NEGATIVE (NEGATIVE); COLOR YELLOW (YELLOW); GLUCOSE NEGATIVE (NEGATIVE); KETONE NEGATIVE (NEGATIVE); NITRITE NEGATIVE (NEGATIVE); UROBILINOGEN NORMAL (NORMAL)
[2018-09-06 20:24] LABS: PROTEIN NEGATIVE (NEGATIVE)
[2018-09-06 20:31] LABS: BASOPHILS 0.3 % (0-2); EOSINOPHILS 0 % (0-7); HEMOGLOBIN 11.8 g/dL (12-16); IMMATURE GRANULOCYTES 0.3 % (0-5); MCH 30.7 pg (26.0-34.0); MCHC 31.1 g/dL (31.0-37.0); MEAN PLATELET VOLUME 11.8 fL (7.4-10.4); MONOCYTES 8.8 % (2-11); NEUTROPHILS 77.6 % (40-80); PLATELET COUNT 153 10x3/uL (130-400); RBC 3.84 10x6/uL (4.00-5.40); RDW 14.3 % (11.5-14.5); WBC 7.2 10x3/uL (4.8-10.8)
[2018-09-06 20:46] LABS: ALBUMIN 3.4 g/dL (3.4-5.0); ANION GAP 16.5 mmol/L (8-16); BILIRUBIN - TOTAL 0.64 mg/dL (0.2-1.3); CALCIUM 8.3 mg/dL (8.5-10.1); CARBON DIOXIDE 28.4 mmol/L (21.0-32.0); CREATININE - SERUM 2.2 mg/dL (0.6-1.3); POTASSIUM - SERUM 4.9 mmol/L (3.5-5.1)
[2018-09-06 21:28] VITALS: BP 131/54
[2018-09-06 22:30] VITALS: BP 105/45
[2018-09-06 23:30] VITALS: BP 150/55
[2018-09-07 00:30] VITALS: BP 105/69
[2018-09-07 05:19] VITALS: BP 97/48; BMI 29.9
[2018-09-07 07:14] LABS: BASOPHILS 0.1 % (0-2); EOSINOPHILS 0 % (0-7); HEMOGLOBIN 10.4 g/dL (12-16); IMMATURE GRANULOCYTES 0.3 % (0-5); LYMPHOCYTES 4.3 % (15-50); MCH 30.1 pg (26.0-34.0); MCHC 30.6 g/dL (31.0-37.0); MCV 98.6 fL (80.0-100.0); MONOCYTES 5.8 % (2-11); NEUTROPHILS 89.5 % (40-80); PLATELET COUNT 125 10x3/uL (130-400); RBC 3.45 10x6/uL (4.00-5.40); RDW 14.5 % (11.5-14.5)
[2018-09-07 07:20] LABS: WBC 12.2 10x3/uL (4.8-10.8)
[2018-09-07 07:50] LABS: ANION GAP 19.1 mmol/L (8-16); CALCIUM 7.8 mg/dL (8.5-10.1); CARBON DIOXIDE 23.8 mmol/L (21.0-32.0); MAGNESIUM - SERUM 1.7 mg/dL (1.8-2.4); POTASSIUM - SERUM 4.9 mmol/L (3.5-5.1)
[2018-09-07 07:51] LABS: CREATININE - SERUM 2.8 mg/dL (0.6-1.3)
[2018-09-07 08:45] VITALS: BP 123/48
[2018-09-07 13:00] VITALS: BP 113/43
[2018-09-07 13:42] LABS: % SATURATION 34 % (15-55); IRON 73 ug/dl (35-150); TOTAL IRON BIND CAPACITY 210 ug/dl (260-445); UNSAT IRON BIND CAPACITY 137 ug/dl (150-375)
[2018-09-07 14:56] VITALS: Ht 167.6 cm; Wt 83.9 kg
[2018-09-07 15:48] LABS: FERRITIN 41160 ng/mL (3-244)
[2018-09-07 15:49] LABS: LDH 6528 U/L (81-234)
[2018-09-07 22:01] VITALS: BP 146/61
[2018-09-08 01:04] VITALS: BP 156/100
[2018-09-08 05:10] VITALS: BP 161/77
[2018-09-08 06:14] LABS: BASOPHILS 0.1 % (0-2); EOSINOPHILS 0 % (0-7); HEMATOCRIT 34.3 % (36.0-48.0); HEMOGLOBIN 10.6 g/dL (12-16); IMMATURE GRANULOCYTES 0.6 % (0-5); LYMPHOCYTES 8.4 % (15-50); MCH 30.5 pg (26.0-34.0); MCHC 30.9 g/dL (31.0-37.0); MCV 98.6 fL (80.0-100.0); MONOCYTES 6.6 % (2-11); NEUTROPHILS 84.3 % (40-80); PLATELET COUNT 106 10x3/uL (130-400); RBC 3.48 10x6/uL (4.00-5.40); RDW 14.5 % (11.5-14.5); WBC 12.8 10x3/uL (4.8-10.8)
[2018-09-08 06:31] LABS: ANION GAP 17.3 mmol/L (8-16); CALCIUM 8.3 mg/dL (8.5-10.1); CARBON DIOXIDE 24.7 mmol/L (21.0-32.0)
[2018-09-08 06:36] LABS: CREATININE - SERUM 3.8 mg/dL (0.6-1.3)
[2018-09-08 07:15] VITALS: BP 114/87
[2018-09-08 08:21] LABS: FOLATE (FOLIC ACID) - SERUM >20.0 ng/mL (>3.0)
== END 2018-09-08 08:06 | DRG 208 ==
LOC: D.ER 19:06 → D.EDHOLD 22:50 → D.ICU 22:50 → D.MS 22:50 → D.ICU 09-08 07:14
PROVIDERS: Family Medicine; ADMIT Internal Medicine Nephrology
PROC: 5A1935Z Respiratory Ventilation, Less than 24 Consecutive Hours (ICD-10-PCS; principal; 2018-09-08)
PROC: 0BH17EZ Insertion of Endotracheal Airway into Trachea, Via Natural or Artificial Opening (ICD-10-PCS; 2018-09-08)
DX: J69.0 Pneumonitis due to inhalation of food and vomit (principal); N17.0 Acute kidney failure with tubular necrosis; J96.20 Acute and chronic respiratory failure, unspecified whether with hypoxia or hypercapnia; I26.99 Other pulmonary embolism without acute cor pulmonale; Z66 Do not resuscitate; E11.22 Type 2 diabetes mellitus with diabetic chronic kidney disease; I12.9 Hypertensive chronic kidney disease with stage 1 through stage 4 chronic kidney disease, or unspecified chronic kidney disease; N18.9 Chronic kidney disease, unspecified; I48.91 Unspecified atrial fibrillation; E03.9 Hypothyroidism, unspecified; J44.9 Chronic obstructive pulmonary disease, unspecified; E83.42 Hypomagnesemia; I25.10 Atherosclerotic heart disease of native coronary artery without angina pectoris